=== PATIENT | female | born 1950 | race Caucasian/White ===

== ENCOUNTER 2017-12-16 06:53 | Inpatient (IN) ==
[2017-12-16] MEDS ORDERED: Morphine Inj 4 MG/ML Vial IV.PUSH ONE ×2 (07:22→12:39)
[2017-12-16] MEDS ORDERED: Sod Chloride 0.9% Inj 1,000 ML IV.SIG ONE (07:22)
[2017-12-16] MEDS ORDERED: Ketorolac Inj 30 MG/ML (IVP) Vial IV.PUSH ONE (07:22)
--- NOTE | 2017-12-16 07:30 | ED ---
HPI General Chief Complaint: Abdominal Pain Stated Complaint: Abd Pain/Evac Time Seen by Provider: 12/16/17 07:22 History of Present Illness HPI narrative: This is a 67-year-old female with history of hypertension, presents today with severe right-sided abdominal pain. Patient states she was sleeping and about 4 AM, she was woken by a sudden onset of sharp stabbing right -sided abdominal pain. She reports it radiates down towards her groin. She describes it as a 9-10 out of 10 pain. There is no relieving factors. Nothing makes it worse. She reports is constant. She also reports slight discomfort with urination. There is no reported fevers, chills. There is nausea with no vomiting. Patient has never had anything like this before. Related Data Home Medications Medication Instructions Recorded Confirmed amlodipine 10 mg PO DAILY 12/16/17 12/16/17 cholecalciferol (vitamin D3) 1,000 unit PO DAILY 12/16/17 12/16/17 [Vitamin D3] multivitamin 1 tab PO DAILY 12/16/17 12/16/17 Allergies Allergy/AdvReac Type Severity Reaction Status Date / Time amoxicillin [From Augmentin] Allergy Rash, Verified 12/16/17 07:05 Generalized clavulanic acid Allergy Rash, Verified 12/16/17 07:05 [From Augmentin] Generalized Review of Systems Except as stated in HPI: all other systems reviewed are negative Constitutional Denies chills and Denies fever(s) Eyes Reports system reviewed and no additional complaints, except as docu ENT Reports system reviewed and no additional complaints, except as docu Cardiovascular Denies chest pain and Denies diaphoresis Respiratory Denies chest congestion and Denies dyspnea Gastrointestinal Reports abdominal pain (Right sided with radiation to the suprapubic area.), Reports nausea and Denies vomiting Genitourinary Denies hematuria (Unknown), Denies urinary frequency and Reports dysuria (Mild) Musculoskeletal Denies back pain and Denies neck pain Integumentary/Breasts Denies lesions and Denies rash Neurologic Reports system reviewed and no additional complaints, except as docu [facility] Medical History Medical History Constipation (Acute) History of revision of total replacement of right hip joint (Acute) Hypercholesterolemia (Acute) Hypertension (Acute) Surgical History Surgical History History of cholecystectomy (Acute) Previous section (Acute) Social History Social History Substance History: No History of Abuse Smoking Status: Former smoker Tobacco Type: Cigarettes How Often Do You Have a Drink Containing Alcohol: Never Recent Travel in [facility] within the Last 8 Weeks: No Recent Out of Country Travel within the Last 8 Weeks: No Immunization History Tetanus Immunization: >5 Years Hx Influenza Vaccine This Season: No Exam Narrative Exam Narrative: GENERAL: Well-developed well-nourished female in obvious discomfort. SKIN: Focused skin assessment warm/dry. HEAD: Atraumatic. Normocephalic. EYES: No scleral icterus. No injection or drainage. ENT: No nasal bleeding or discharge. Mucous membranes pink and moist. NECK: Trachea midline. Supple. CARDIOVASCULAR: Regular rate and rhythm. No murmur appreciated. RESPIRATORY: No accessory muscle use. Clear to auscultation. Breath sounds equal bilaterally. GASTROINTESTINAL: Abdomen soft, nondistended. The patient reports the pain is a deep pain. There is no reproducible pain on palpation. No pulsatile masses appreciated. MUSCULOSKELETAL: No obvious deformities. No clubbing. No cyanosis. No edema. NEUROLOGICAL: Awake and alert. No obvious cranial nerve deficits. Motor grossly within normal limits. Normal speech. Course Initial Documented Vital Signs Temperature 97.9 F 12/16/17 06:55 Pulse Rate 90 12/16/17 06:55 Respiratory Rate 16 12/16/17 06:55 Blood Pressure 133/68 12/16/17 06:55 Pulse Oximetry 99 12/16/17 06:55 Last Documented Vital Signs Temperature 97.9 F 12/16/17 07:01 Pulse Rate 99 H 12/16/17 12:03 Respiratory Rate 20 12/16/17 12:03 Blood Pressure 151/67 H 12/16/17 12:03 Pulse Oximetry 97 12/16/17 12:03 Medical Decision Making [facility] Narrative Medical decision making narrative: This is a 67-year-old female history of hypertension, presents today with complaints of severe right-sided abdominal pain. Patient states it woke her up from her sleep. She describes it as a 9- 10 out of 10 on the pain scale. It was unrelenting. She has been medicated twice with IV pain medicines. CT scan of the abdomen with contrast shows a large left adnexal mass concerning for malignancy. There is also a right adrenal mass that given the left adnexal mass, there is also concerned that this could possibly be malignant rather than benign. The patient will be admitted for intractable abdominal pain. There is a call out to the [facility] for admission. Differential Diagnosis Differential Diagnosis: Renal calculus versus cholecystitis versus pancreatitis versus AAA Lab Data Result diagrams: 12/16/17 07:30 12/16/17 07:30 Lab Results 12/16/17 12/16/17 12/16/17 Range/Units 07:30 07:30 08:32 WBC 11.5 H (4.0-11.0) th/mm3 RBC 3.98 L (4.00-5.30) mil/mm3 Hgb 11.8 (11.6-15.3) gm/dL Hct 35.8 (35.0-46.0) % MCV 90.0 (80.0-100.0) fL MCH 29.7 (27.0-34.0) pg MCHC 33.0 (32.0-36.0) % RDW 13.3 (11.6-17.2) % Plt Count 224 (150-450) th/mm3 MPV 10.4 (7.0-11.0) fL Neut % (Auto) 81.8 H (16.0-70.0) % Lymph % (Auto) 11.7 (9.0-44.0) % [place] % (Auto) 5.5 (0.0-8.0) % Eos % (Auto) 0.4 (0.0-4.0) % Baso % (Auto) 0.6 (0.0-2.0) % Neut # (Auto) 9.4 H (1.8-7.7) th/mm3 Lymph # (Auto) 1.3 (1.0-4.8) th/mm3 [place] # (Auto) 0.6 (0.0-0.9) th/mm3 Eos # (Auto) 0.0 (0.0-0.4) th/mm3 Baso # (Auto) 0.1 (0.0-0.2) th/mm3 WBC Differential . Differential Comment Auto diff final Sodium 143 (136-145) meq/L Potassium 3.4 L (3.5-5.1) meq/L Chloride 108 H (98-107) meq/L Carbon Dioxide 25.6 (21.0-32.0) meq/L Anion Gap 9 (5-15) meq/L BUN 17 (7-18) mg/dL Creatinine 0.93 (0.50-1.00) mg/dL Estimated GFR 60 L (>89) mL/min Random Glucose 133 H (74-106) mg/dL Calcium 8.7 (8.5-10.1) mg/dL Total Bilirubin 0.4 (0.2-1.0) mg/dL AST 17 (15-37) U/L ALT 22 (10-53) U/L Alkaline Phosphatase 118 H (45-117) U/L Total Protein 7.3 (6.4-8.2) g/dL Albumin 3.9 (3.4-5.0) g/dL Lipase 85 (73-393) U/L Urine Color Yellow (Yellw/Straw) Urine Clarity Clear (Clear) Urine pH 7.0 (5.0-8.5) Ur Specific [place] 1.015 (1.002-1.035) Urine Protein Negative (Neg-Trace) mg/dL Urine Glucose (UA) Negative (Negative) mg/dL Urine Ketones Negative (Negative) mg/dL Urine Occult Blood Negative (Negative) Urine Nitrate Negative (Negative) Urine Bilirubin Negative (Negative) Urine Urobilinogen Less than 2 (Less than 2) mg/dL Ur Leukocyte Esterase Trace H (Negative) Urine RBC 1 (0-3) /hpf Urine WBC 2 (0-5) /hpf Ur Squamous Epith Cells 2 (0-5) /hpf Micro UA Comment Culture not ind Urine Culture Comments Culture not ind Imaging Data Radiologist's impression: Abdomen/Pelvis CT 12/16/17 09:34 CONCLUSION: 1. 16.7 x 13.4 x 16.9 cm cystic mass arising from the left adnexa concerning for malignancy. 2. 2.9 x 3.5 cm mass in the right adrenal gland this is fairly low density and may be benign however it is somewhat more concerning in light of the mass within the pelvis. MRI with chemical shift imaging for further assessment would be of benefit. Discharge Plan Discharge Disposition Patient Disposition: 30 Still Patient Discharge Details Diagnosis: Intractable right upper quadrant abdominal pain, Adnexal mass, Adrenal mass, right Physicians Team ED Provider: Juan David Roger Primary Care Provider: UNKNOWN, Rxs /Orders / Referrals /Forms Prescriptions: No Action multivitamin Tablet 1 tab PO DAILY RF: 0 amlodipine 10 mg Tablet 10 mg PO DAILY RF: 0 cholecalciferol (vitamin D3) [Vitamin D3] 1,000 unit Capsule 1,000 unit PO DAILY RF: 0 Discharge Interventions Interventions: Vital Signs Last Done: 12/16/17 12:03 Status ED Status: With Doctor
[2017-12-16 07:51] LABS: Baso # (Auto) 0.1 th/mm3 (0.0-0.2); Baso % (Auto) 0.6 % (0.0-2.0); Eos % (Auto) 0.4 % (0.0-4.0); Hematocrit 35.8 % (35.0-46.0); Hemoglobin 11.8 gm/dL (11.6-15.3); Lymph # (Auto) 1.3 th/mm3 (1.0-4.8); Lymph % (Auto) 11.7 % (9.0-44.0); Mean Corpuscular Hemoglobin 29.7 pg (27.0-34.0); Mean Platelet Volume 10.4 fL (7.0-11.0); Mono # (Auto) 0.6 th/mm3 (0.0-0.9); Mono % (Auto) 5.5 % (0.0-8.0); Neut # (Auto) 9.4 th/mm3 (1.8-7.7); Neut % (Auto) 81.8 % (16.0-70.0); Platelet Count 224 th/mm3 (150-450); Red Blood Count 3.98 mil/mm3 (4.00-5.30); Red Cell Distribution Width 13.3 % (11.6-17.2); White Blood Count 11.5 th/mm3 (4.0-11.0)
[2017-12-16] MEDS ORDERED: HYDROmorphone PF Inj 2 MG/ML Vial IV.PUSH ONE ×2 (07:52→09:42)
[2017-12-16 08:05] LABS: Alanine Aminotransferase 22 U/L (10-53); Albumin 3.9 g/dL (3.4-5.0); Anion Gap 9 meq/L (5-15); Aspartate Aminotransferase 17 U/L (15-37); Blood Urea Nitrogen 17 mg/dL (7-18); Calcium 8.7 mg/dL (8.5-10.1); Carbon Dioxide 25.6 meq/L (21.0-32.0); Chloride 108 meq/L (98-107); Glomerular Filtration Rate 60 mL/min (>89); Glucose,Random 133 mg/dL (74-106); Lipase 85 U/L (73-393); Potassium 3.4 meq/L (3.5-5.1); Sodium 143 meq/L (136-145)
[2017-12-16 08:08] LABS: Alkaline Phosphatase 118 U/L (45-117); Total Protein 7.3 g/dL (6.4-8.2)
[2017-12-16 08:58] LABS: Bilirubin,Urine Negative (Negative); Clarity,Urine Clear (Clear); Color,Urine Yellow (Yellw/Straw); Glucose,Urine (UA) Negative (Negative); Leukocyte Esterase,Urine Trace (Negative); Nitrite,Urine Negative (Negative); Specific Gravity,Urine 1.015 (1.002-1.035); Squamous Epithelial Cell,Urine 2 /hpf (0-5)
[2017-12-16] MEDS ORDERED: HYDROmorphone PF Inj 1 MG/ML Ampul IV.PUSH ONE (09:24)
[2017-12-16] MEDS ORDERED: Diatrizoate Meglum/Diatrizoate Sod Liq 9 ML UDC ONE (09:50)
[2017-12-16] MEDS ORDERED: Diatrizoate Meglum/Diatrizoate Sod Liq 9 ML UDC PO ONE (11:00)
--- NOTE | 2017-12-16 11:19 | CT ---
EXAM DATE: 12/16/2017 11:03 AM EDT AGE/SEX: 67 years / Female INDICATIONS: Right upper quadrant abdominal pain. CLINICAL DATA: This is the patient's initial encounter. Patient reports that signs and symptoms have been present for 1 day and indicates a pain score of 8/10. MEDICAL/SURGICAL HISTORY: Hypertension. Cholecystectomy. section. ORAL CONTRAST: Partial prescribed oral contrast ingested. RADIATION DOSE: 14.68 CTDI (mGy) COMPARISON: No prior exams available for comparison. TECHNIQUE: Multiple contiguous axial images were obtained through the abdomen and pelvis following b olus infusion of 93 ml Omnipaque 350 (iohexol) nonionic water-soluble contrast as a single exam dos e. Partial prescribed oral contrast ingested. Using automated exposure control and adjustment of the mA and/or kV according to patient size, radiation dose was kept as low as reasonably achievable to o btain optimal diagnostic quality images. DICOM format image data is available electronically for rev iew and comparison. FINDINGS: The examination demonstrates mild atelectatic changes within the lung bases. The appearance of the liver is within normal limits. There are punctate granulomatous calcifications within the spleen. The pancreas is intact. The examination does demonstrate a 2.9 x 3.5 cm mass within the right adrenal gland. This is fairly l ow density however it does measure approximately 50 Hounsfield units it probably represents adrenal a denoma however, the density measurements are indeterminate. Patient could either undergo MRI imaging or noncontrast CT imaging at some point for further workup. The kidneys are normal in appearance bilaterally. The abdominal aorta is normal in caliber. There is no retroperitoneal adenopathy. Imaging through the pelvis demonstrates a 16.7 x 13.4 x 16.9 cm well-circumscribed mass arising from the left adnexal region. This is felt to be ovarian origin. Primary differential considerations would include serous cyst adenoma versus serous cyst adenocarcinoma. Malignancy is not excluded. No adenop athy is seen within the pelvis. There is no free fluid within the pelvis. The visualized loops of sma ll and large bowel are unremarkable. The anterior abdominal wall is intact. There are degenerative changes within the lumbar spine. The patient is post right hip arthroplasty. N ote is made of a 1 cm bone island in the posterior right iliac wing. CONCLUSION: 1. 16.7 x 13.4 x 16.9 cm cystic mass arising from the left adnexa concerning for malignancy. 2. 2.9 x 3.5 cm mass in the right adrenal gland this is fairly low density and may be benign however it is somewhat more concerning in light of the mass within the pelvis. MRI with chemical shift imagi ng for further assessment would be of benefit. Electronically signed by: Adrien Torrez MD 12/16/2017 11:18 AM EDT
[2017-12-16] MEDS ORDERED: Temazepam 15 MG Capsule PO PRN (12:34)
[2017-12-16] MEDS ORDERED: Acetaminophen 325 MG Tablet PO PRN (12:34)
--- NOTE | 2017-12-16 13:03 | P.HPIM ---
History of Present Illness Primary Care Physician: UNKNOWN Chief Complaint: Pain History of Present Illness: The patient is a 67-year-old female with past medical history of hypertension and hyperlipidemia who is presenting to the hospital with severe abdominal pain. The patient states that at 4 AM she woke up to go to the bathroom when she started to experience severe sharp pains in her right lower quadrant. She says the pain continued to get worse and worse. It was radiating to her right lower back and also down the right side of her groin. She said she had accompanying nausea. She denied any dizziness or fever. She called her daughter at about 5 AM. The patient's is on hospice and the hospice nurse was there and called for an ambulance. The patient still rates her pain at 8 out of 10 in severity. 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 She said her periods stopped at the age of 51. She has not had any bleeding recently. She says that she has been experiencing low right-sided back pain for the past week. She has been taking Advil for that. She endorses hard stools and has been taking stool softeners. She does admit to noticing protrusions in her abdomen over the past 6 months. Inpatient Certification: I certify that the inpatient services were ordered in accordance with Medicare regulations governing the order. This includes certification that hospital inpatient services are reasonable and necessary and in the case of services not specified as inpatient-only under 42 CFR 419.22(n), that they are appropriately provided as inpatient services in accordance to with the 2-midnight benchmark under 43 CFR 412.3(e) Estimated Total Length of Stay (Days): 3 Plans for Post Hospital Care: Not yet determined Review of Systems All other systems reviewed negative except as stated in HPI PMFSH - History History Provided By: Patient, Parts And Service Manager / EMT - Medical History Medical History: Medical History (Last Updated 12/16/17 @ 07:00 by Jacqui De Jesus RN) Constipation History of revision of total replacement of right hip joint Hypercholesterolemia Hypertension - Surgical History Surgical History: Surgical History (Last Updated 12/16/17 @ 07:00 by Jacqui De Jesus RN) History of cholecystectomy Previous section - Family History Family History: Family History (Last Updated 12/16/17 @ 13:04 by Peng Sayess, DO) Other Renal cancer - Tobacco History Smoking Status: Former smoker Tobacco Type: Cigarettes - Alcohol History How Often Do You Have a Drink Containing Alcohol: Never - Substance Use History Substance History: No History of Abuse - Travel History Recent Travel in the [place] Within the Last 8 Weeks: No Recent Travel Out of the Country Within the Last 8 Weeks: No - Immunization History Tetanus Immunization: >5 Years Hx Influenza Vaccine This Season: No Medications and Allergies Active Medications: Active Medications Acetaminophen (Tylenol) 650 mg PO Q4H PRN PRN Reason: Temp > 100.4 Amlodipine Besylate (Norvasc) 10 mg PO DAILY ALFRED Hydromorphone HCl (Dilaudid Pf Inj) 1 mg IV.PUSH Q4H PRN PRN Reason: BREAKTHROUGH PAIN Sodium Chloride (Ns Inj) 1,000 mls @ 100 mls/hr IV.CONT .Q10H ALFRED Potassium Chloride (Kcl 20 Meq Premix Inj) 20 meq in 100 mls @ 50 mls/hr IV.SIG ONCE ONE Stop: 12/16/17 14:33 Metoclopramide HCl (Reglan Inj) 5 mg IV.PUSH Q6HR PRN; Protocol PRN Reason: NAUSEA OR VOMITING Oxycodone HCl (Roxicodone) 10 mg PO Q4H PRN PRN Reason: pain 7-10 Oxycodone HCl (Roxicodone) 5 mg PO Q4H PRN PRN Reason: pain 3-6 Senna/Docusate Sodium (Juju-Colace) 1 tab PO BID ALFRED Sodium Chloride (Ns Flush) 2 ml IV.FLUSH PRN PRN PRN Reason: FLUSH AFTER USING IV ACCESS Last Admin: 12/16/17 12:45 Dose: 2 ml Temazepam (Restoril) 15 mg PO HS PRN PRN Reason: INSOMNIA Allergies Allergy/AdvReac Type Severity Reaction Status Date / Time amoxicillin [From Augmentin] Allergy Rash, Verified 12/16/17 07:05 Generalized clavulanic acid Allergy Rash, Verified 12/16/17 07:05 [From Augmentin] Generalized Home Medications Medication Instructions Recorded Confirmed Type amlodipine 10 mg PO DAILY 12/16/17 12/16/17 History cholecalciferol (vitamin D3) 1,000 unit PO DAILY 12/16/17 12/16/17 History [Vitamin D3] multivitamin 1 tab PO DAILY 12/16/17 12/16/17 History Exam Vital signs: Vital Signs 12/16/17 06:55 12/16/17 07:01 12/16/17 07:24 Temperature 97.9 F 97.9 F Pulse Rate 90 96 H Respiratory Rate 16 16 Blood Pressure 133/68 133/68 Pulse Oximetry 99 99 99 12/16/17 08:05 12/16/17 08:08 12/16/17 09:00 Temperature Pulse Rate 93 H 93 H Respiratory Rate 16 14 Blood Pressure 135/71 124/60 Pulse Oximetry 93 L 96 97 12/16/17 12:03 Temperature Pulse Rate 99 H Respiratory Rate 20 Blood Pressure 151/67 H Pulse Oximetry 97 Intake & Output 12/15/17 12/16/17 12/16/17 18:59 06:59 18:59 Intake Total 1000 / 1000 Balance 1000 / 1000 Weight 102.058 kg Intake: IV 1000 / 1000 NS Inj 1,000 ML @ Wide Open IV. 1000 / 1000 SIG BOLUS ONE Rx#:[id number] Other: # Voids 2 Date of Last Bowel Movement 12/15/17 Narrative: GENERAL: Well-developed well-nourished female in discomfort. SKIN: Focused skin assessment warm/dry. HEAD: Atraumatic. Normocephalic. EYES: No scleral icterus. No injection or drainage. ENT: No nasal bleeding or discharge. Mucous membranes pink and moist. NECK: Trachea midline. Supple. CARDIOVASCULAR: Regular rate and rhythm. No murmur appreciated. RESPIRATORY: No accessory muscle use. Clear to auscultation. Breath sounds equal bilaterally. GASTROINTESTINAL: Abdomen soft, tender in the upper quadrants. Somewhat distended. MUSCULOSKELETAL: No obvious deformities. No clubbing. No cyanosis. No edema. NEUROLOGICAL: Awake and alert. No obvious cranial nerve deficits. Motor grossly within normal limits. Normal speech. Results - Labs CBC & Chem 7: 12/16/17 07:30 12/16/17 07:30 Labs: Short CBC 12/16/17 Range/Units 07:30 WBC 11.5 H (4.0-11.0) th/mm3 Hgb 11.8 (11.6-15.3) gm/dL Hct 35.8 (35.0-46.0) % Plt Count 224 (150-450) th/mm3 BMP 12/16/17 07:30 Sodium 143 Potassium 3.4 L Chloride 108 H Carbon Dioxide 25.6 BUN 17 Creatinine 0.93 Calcium 8.7 Liver Function 12/16/17 Range/Units 07:30 Total Bilirubin 0.4 (0.2-1.0) mg/dL AST 17 (15-37) U/L ALT 22 (10-53) U/L Alkaline Phosphatase 118 H (45-117) U/L Albumin 3.9 (3.4-5.0) g/dL Urine 12/16/17 Range/Units 08:32 Urine Color Yellow (Yellw/Straw) Urine Clarity Clear (Clear) Urine pH 7.0 (5.0-8.5) Ur Specific [place] 1.015 (1.002-1.035) Urine Protein Negative (Neg-Trace) mg/dL Urine Glucose (UA) Negative (Negative) mg/dL - Imaging Impressions Abdomen/Pelvis CT 12/16/17 09:34 CONCLUSION: 1. 16.7 x 13.4 x 16.9 cm cystic mass arising from the left adnexa concerning for malignancy. 2. 2.9 x 3.5 cm mass in the right adrenal gland this is fairly low density and may be benign however it is somewhat more concerning in light of the mass within the pelvis. MRI with chemical shift imaging for further assessment would be of benefit. Caprini VTE Risk Assessment Caprini VTE Risk Assessment: Moderate/High Risk (score >= 2) Caprini Risk Assessment Model: Point Value = 1 Point Value = 2 Point Value = 3 Point Value = 5 Age 41-60 Minor surgery BMI > 25 kg/m2 Swollen legs Varicose veins or History of unexplained or recurrent spontaneous Oral contraceptives or hormone replacement Sepsis (< 1 month) Serious lung disease, including pneumonia (< 1 month) Abnormal pulmonary function Acute myocardial infarction Congestive heart failure (< 1 month) History of inflammatory bowel disease Medical patient at bed rest Age 61-74 Arthroscopic surgery Major open surgery (> 45 min) Laparoscopic surgery (> 45 min) Malignancy Confined to bed (> 72 hours) Immobilizing plaster cast Central venous access Age >= 75 History of VTE Family history of VTE Factor V Leiden Prothrombin [id number] Lupus anticoagulant Anticardiolipin antibodies Elevated serum homocysteine Heparin-induced thrombocytopenia Other congenital or acquired thrombophilia Stroke (< 1 month) Elective arthroplasty Hip, pelvis, or leg fracture Acute spinal cord injury (< 1 month) Prophylaxis Regimen: Total Risk Factor Score Risk Level Prophylaxis Regimen 0-1 Low Early ambulation 2 Moderate Order ONE of the following: *Sequential Compression Device (SCD) *Heparin 5000 units SQ BID 3-4 Higher Order ONE of the following medications: *Heparin 5000 units SQ TID *Enoxaparin/Lovenox 40 mg SQ daily (WT < 150 kg, CrCl > 30 mL/min) *Enoxaparin/Lovenox 30 mg SQ daily (WT < 150 kg, CrCl > 10-29 mL/min) *Enoxaparin/Lovenox 30 mg SQ BID (WT < 150 kg, CrCl > 30 mL/min) AND/OR *Sequential Compression Device (SCD) 5 or more Highest Order ONE of the following medications: *Heparin 5000 units SQ TID (Preferred with Epidurals) *Enoxaparin/Lovenox 40 mg SQ daily (WT < 150 kg, CrCl > 30 mL/min) *Enoxaparin/Lovenox 30 mg SQ daily (WT < 150 kg, CrCl > 10-29 mL/min) *Enoxaparin/Lovenox 30 mg SQ BID (WT < 150 kg, CrCl > 30 mL/min) AND *Sequential Compression Device (SCD) Assessment and Plan - Plan Adnexal mass The pt presented with severe abdominal pain. CT showed: 16.7 x 13.4 x 16.9 cm cystic mass arising from the left adnexa concerning for malignancy; 2.9 x 3.5 cm mass in the right adrenal gland this is fairly low density and may be benign however it is somewhat more concerning in light of the mass within the pelvis; MRI with chemical shift imaging for further assessment would be of benefit. -pain control with a bowel regimen. -antiemetics as needed. -OBGYN consult pending. -keep the pt NPO with IVFs. HTN Exacerbated by pain. -resume home amlodipine. -pain control. -clonidine if needed. Hypokalemia Likely s/t decreased PO intake. -replete with IV KCl and monitor. Leukocytosis/ Hyperglycemia Likely a stress reaction. -continue to monitor. PPx: SCDs Code Status: Full
[2017-12-16] MEDS ORDERED: Potassium Chlor 20 mEq Premix 20 MEQ/100 ML PIGGYBACK IV.SIG ONE (15:00)
[2017-12-16] MEDS: HYDROmorphone PF Inj 2 MG/ML Vial IV.PUSH PRN ×2 (16:11→20:27)
[2017-12-16] MEDS: amLODIPine 10 MG Tablet PO SCH (16:48)
[2017-12-16] MEDS: Sod Chloride 0.9% Inj 1,000 ML IV.CONT SCH (16:48)
[2017-12-16] MEDS: Senna/Docusate Sodium 8.6/50 MG Tablet PO SCH (20:29)
[2017-12-17] MEDS: HYDROmorphone PF Inj 2 MG/ML Vial IV.PUSH PRN ×2 (02:39→09:31)
[2017-12-17] MEDS: Sod Chloride 0.9% Inj 1,000 ML IV.CONT SCH ×3 (02:41→22:28)
[2017-12-17 06:06] LABS: Baso % (Auto) 0.3 % (0.0-2.0); Eos % (Auto) 0.2 % (0.0-4.0); Hematocrit 29.8 % (35.0-46.0); Mean Corpuscular HGB Conc 33.6 % (32.0-36.0); Mean Corpuscular Hemoglobin 30.6 pg (27.0-34.0); Mean Corpuscular Volume 91.1 fL (80.0-100.0); Mean Platelet Volume 10.1 fL (7.0-11.0); Mono # (Auto) 0.9 th/mm3 (0.0-0.9); Mono % (Auto) 9.7 % (0.0-8.0); Neut # (Auto) 7.1 th/mm3 (1.8-7.7); Neut % (Auto) 78.8 % (16.0-70.0); Platelet Count 195 th/mm3 (150-450); Red Blood Count 3.27 mil/mm3 (4.00-5.30); Red Cell Distribution Width 13.4 % (11.6-17.2)
[2017-12-17 06:30] LABS: Alanine Aminotransferase 216 U/L (10-53); Albumin 3.3 g/dL (3.4-5.0); Alkaline Phosphatase 159 U/L (45-117); Anion Gap 7 meq/L (5-15); Aspartate Aminotransferase 342 U/L (15-37); Blood Urea Nitrogen 14 mg/dL (7-18); Calcium 8.7 mg/dL (8.5-10.1); Carbon Dioxide 27.9 meq/L (21.0-32.0); Chloride 106 meq/L (98-107); Glomerular Filtration Rate 64 mL/min (>89); Glucose,Random 103 mg/dL (74-106); Potassium 3.9 meq/L (3.5-5.1); Sodium 141 meq/L (136-145); Total Protein 6.7 g/dL (6.4-8.2)
[2017-12-17] MEDS: Senna/Docusate Sodium 8.6/50 MG Tablet PO SCH ×2 (09:30→22:28)
[2017-12-17] MEDS: amLODIPine 10 MG Tablet PO SCH (09:30)
--- NOTE | 2017-12-17 13:26 | P.CONOB ---
History of Present Illness - Data of Consult Consult date: 12/17/17 Requesting Physician: Peng Mancia DO Primary Care Provider: MACEY Sharpe Family Provider: Amada Dorantes - Consult Narrative Reason for consult: pelvic pain (Large pelvic mass noted on CT scan on admission ), pelvic mass Narrative: Blanquita Webber is a 67 year old female Review of Systems Constitutional: Denies anorexia, Denies body ache(s), Denies chills, Denies daytime sleepiness, Denies excessive sweating, Denies fatigue, Denies fever(s), Denies headache(s), Denies increased appetite, Denies lack of energy, Denies malaise, Denies night sweats, Denies weakness, Denies weight gain, Denies weight loss, Denies other Cardiovascular: Denies chest pain, Denies chest pain at rest, Denies chest pain with activity, Denies excessive sweating, Denies fainting, Denies fast heart rate, Denies foot swelling, Denies generalized swelling, Denies irregular heart rhythm, Denies leg pain with activity, Denies leg sores, Denies leg swelling, Denies lightheadedness, Denies radiating jaw, neck or arm pain, Denies rapid, pounding, or irregular heartbeat, Denies shortness of breath, Denies shortness of breath with activity, Denies shortness of breath when lying down, Denies shortness of breath causing sudden awakening, Denies slow heart rate, Denies other Respiratory: Denies change in phlegm color, Denies chest congestion, Denies cough, Denies coughing up blood, Denies excessive phlegm production, Denies pain on inspiration, Denies pain with cough, Denies shortness of breath, Denies shortness of breath with activity, Denies snoring, Denies stridor, Denies wheezing, Denies other Gastrointestinal: Reports abdominal pain Neurologic: Denies abnormal hearing, Denies abnormal movements, Denies abnormal speech, Denies abnormal walking, Denies behavioral changes, Denies burning sensations, Denies confusion, Denies dizziness, Denies fainting, Denies frequent falls, Denies headache(s), Denies lack of coordination, Denies localized weakness, Denies loss of vision, Denies memory loss, Denies numbness, Denies other visual disturbances, Denies radiating pain, Denies restless legs, Denies convulsions, Denies seizure-like activity, Denies sensory deficit, Denies tingling, Denies tingling/numbness/burning sensations, Denies tremor(s), Denies unsteadiness, Denies weakness, Denies other PMFSH - History History Provided By: Patient, Platform Power Technician / EMT - Medical History Medical History: Medical History (Last Updated 12/16/17 @ 07:00 by Jacqui De Jesus RN) Constipation History of revision of total replacement of right hip joint Hypercholesterolemia Hypertension - Surgical History Surgical History: Surgical History (Last Updated 12/16/17 @ 07:00 by Jacqui De Jesus RN) History of cholecystectomy Previous section - Family History Family History: Family History (Last Updated 12/16/17 @ 13:04 by Peng Mancia DO) Other Renal cancer - Tobacco History Smoking Status: Former smoker Tobacco Type: Cigarettes - Alcohol History How Often Do You Have a Drink Containing Alcohol: Never - Substance Use History Substance History: No History of Abuse - Travel History Recent Travel in the [place] Within the Last 8 Weeks: No Recent Travel Out of the Country Within the Last 8 Weeks: No - Immunization History Tetanus Immunization: >5 Years Hx Influenza Vaccine This Season: No Medications and Allergies Active Medications: Active Medications Acetaminophen (Tylenol) 650 mg PO Q4H PRN PRN Reason: Temp > 100.4 Amlodipine Besylate (Norvasc) 10 mg PO DAILY [facility] Last Admin: 12/17/17 09:30 Dose: 10 mg Hydromorphone HCl (Dilaudid Pf Inj) 1 mg IV.PUSH Q4H PRN PRN Reason: BREAKTHROUGH PAIN Last Admin: 12/17/17 09:31 Dose: 1 mg Sodium Chloride (Ns Inj) 1,000 mls @ 100 mls/hr IV.CONT .Q10H [facility] Last Admin: 12/17/17 13:07 Dose: 100 mls/hr Metoclopramide HCl (Reglan Inj) 5 mg IV.PUSH Q6H PRN; Protocol PRN Reason: NAUSEA OR VOMITING Last Admin: 12/17/17 09:30 Dose: 5 mg Oxycodone HCl (Roxicodone) 10 mg PO Q4H PRN PRN Reason: pain 7-10 Last Admin: 12/17/17 13:06 Dose: 10 mg Oxycodone HCl (Roxicodone) 5 mg PO Q4H PRN PRN Reason: pain 3-6 Senna/Docusate Sodium (Juju-Colace) 1 tab PO BID [facility] Last Admin: 12/17/17 09:30 Dose: 1 tab Sodium Chloride (Ns Flush) 2 ml IV.FLUSH PRN PRN PRN Reason: FLUSH AFTER USING IV ACCESS Last Admin: 12/16/17 12:45 Dose: 2 ml Temazepam (Restoril) 15 mg PO HS PRN PRN Reason: INSOMNIA Allergies Allergy/AdvReac Type Severity Reaction Status Date / Time amoxicillin [From Augmentin] Allergy Rash, Verified 12/16/17 07:05 Generalized clavulanic acid Allergy Rash, Verified 12/16/17 07:05 [From Augmentin] Generalized Home Medications Medication Instructions Recorded Confirmed Type amlodipine 10 mg PO DAILY 12/16/17 12/16/17 History cholecalciferol (vitamin D3) 1,000 unit PO DAILY 12/16/17 12/16/17 History [Vitamin D3] multivitamin 1 tab PO DAILY 12/16/17 12/16/17 History Physical Exam Vital signs: Temp Pulse Resp BP Pulse Ox 98.9 F 81 18 114/55 L 97 12/17/17 12:00 12/17/17 12:00 12/17/17 12:00 12/17/17 12:00 12/17/17 12:00 - Constitutional no acute distress - Routine Respiratory Exam Present: CTA bilaterally - Routine Abdominal Exam Present: soft, mass Comments: Abdominal exam reveals slightly distended abdomen with normal bowel sounds by percussion and palpation there is a mass to near the umbilicus that appears to be across the whole pelvis right to left, this mass is 1-2+ tender - Detailed Neurological Exam: Coma Scale Eye Opening: Spontaneous Verbal Response: Oriented Motor Response: Obey commands [place] Coma Scale Total: 15 Results - Labs CBC & Chem 7: 12/17/17 04:16 12/17/17 04:16 Labs: Short CBC 12/17/17 Range/Units 04:16 WBC 9.0 (4.0-11.0) th/mm3 Hgb 10.0 L (11.6-15.3) gm/dL Hct 29.8 L (35.0-46.0) % Plt Count 195 (150-450) th/mm3 BMP 12/17/17 04:16 Sodium 141 Potassium 3.9 Chloride 106 Carbon Dioxide 27.9 BUN 14 Creatinine 0.88 Calcium 8.7 Liver Function 12/17/17 Range/Units 04:16 Total Bilirubin 1.0 (0.2-1.0) mg/dL AST 342 H (15-37) U/L ALT 216 H (10-53) U/L Alkaline Phosphatase 159 H (45-117) U/L Albumin 3.3 L D (3.4-5.0) g/dL - Imaging CT scan shows large pelvic mass arising from what appears to the left adnexa with a 17 x 16 x 14 cm Assessment and Plan - Assessment (1) Pelvic mass in female Code(s): R19.00 - Intra-abdominal and pelvic swelling, mass and lump, unspecified site Status: Acute (2) Abdominal pain in female Code(s): R10.9 - Unspecified abdominal pain Status: Acute - Plan Plan to check a CA 125 on this patient and if markedly elevated and patient needs SOUND RECORDING TECHNICIAN oncology evaluation and surgical therapy, if the CA-125 is within normal limits and I consider gynecologic staff referral for surgical therapy
--- NOTE | 2017-12-17 13:52 | P.PNIM ---
Subjective Interval history: The patient said that her pain was better controlled. She still has right sided abdominal and back pain. Her family was at the bedside and their questions were answered. The patient did not have much of an appetite. Discussed with EXERCISE SPECIALIST. Physical Exam Vital signs: Vital Signs 12/16/17 16:00 12/16/17 18:07 12/16/17 18:18 Temperature 98.3 F Pulse Rate 95 H Respiratory Rate 18 18 Blood Pressure 133/60 Pulse Oximetry 98 98 12/16/17 20:00 12/17/17 00:00 12/17/17 08:00 Temperature 98.3 F 98 F 98.3 F Pulse Rate 86 80 86 Respiratory Rate 17 17 18 Blood Pressure 116/59 L 112/60 138/66 Pulse Oximetry 93 L 94 L 96 12/17/17 12:00 Temperature 98.9 F Pulse Rate 81 Respiratory Rate 18 Blood Pressure 114/55 L Pulse Oximetry 97 Intake & Output 12/16/17 12/17/17 12/17/17 18:59 06:59 18:59 Intake Total 1000 / 1000 1100 / 1100 1000 / 1000 Balance 1000 / 1000 1100 / 1100 1000 / 1000 Intake: IV 1000 / 1000 1100 / 1100 1000 / 1000 NS Inj 1,000 ML @ 100 mls/hr IV 1000 / 1000 1000 / 1000 .CONT .Q10H [facility] Rx#:[id number] KCl 20 mEq Premix Inj 20 meq In 100 / 100 100 ml @ 50 mls/hr IV.SIG ONCE ONE Rx#:[id number] NS Inj 1,000 ML @ Wide Open IV. 1000 / 1000 SIG BOLUS ONE Rx#:[id number] Oral 0 / 0 Other: # Voids 3 2 Date of Last Bowel Movement 12/15/17 Narrative: GENERAL: Well-developed well-nourished female in discomfort. SKIN: Focused skin assessment warm/dry. HEAD: Atraumatic. Normocephalic. EYES: No scleral icterus. No injection or drainage. ENT: No nasal bleeding or discharge. Mucous membranes pink and moist. NECK: Trachea midline. Supple. CARDIOVASCULAR: Regular rate and rhythm. No murmur appreciated. RESPIRATORY: No accessory muscle use. Clear to auscultation. Breath sounds equal bilaterally. GASTROINTESTINAL: Abdomen soft, tender in the upper quadrants. Somewhat distended. MUSCULOSKELETAL: No obvious deformities. No clubbing. No cyanosis. No edema. NEUROLOGICAL: Awake and alert. No obvious cranial nerve deficits. Motor grossly within normal limits. Normal speech. Results - Labs CBC & Chem 7: 12/17/17 04:16 12/17/17 04:16 Laboratory Results - last 24 hr 12/17/17 12/17/17 04:16 04:16 WBC 9.0 RBC 3.27 L Hgb 10.0 L Hct 29.8 L MCV 91.1 MCH 30.6 MCHC 33.6 RDW 13.4 Plt Count 195 MPV 10.1 Neut % (Auto) 78.8 H Lymph % (Auto) 11.0 Atkinson % (Auto) 9.7 H Eos % (Auto) 0.2 Baso % (Auto) 0.3 Neut # (Auto) 7.1 Lymph # (Auto) 1.0 Atkinson # (Auto) 0.9 Eos # (Auto) 0.0 Baso # (Auto) 0.0 WBC Differential . Differential Comment Auto diff final Sodium 141 Potassium 3.9 Chloride 106 Carbon Dioxide 27.9 Anion Gap 7 BUN 14 Creatinine 0.88 Estimated GFR 64 L Random Glucose 103 Calcium 8.7 Total Bilirubin 1.0 AST 342 H ALT 216 H Alkaline Phosphatase 159 H Total Protein 6.7 D Albumin 3.3 L D Assessment and Plan - Plan Adnexal mass The pt presented with severe abdominal pain. CT showed: 16.7 x 13.4 x 16.9 cm cystic mass arising from the left adnexa concerning for malignancy; 2.9 x 3.5 cm mass in the right adrenal gland this is fairly low density and may be benign however it is somewhat more concerning in light of the mass within the pelvis; MRI with chemical shift imaging for further assessment would be of benefit. -pain control with a bowel regimen. -antiemetics as needed. -OBGYN consult appreciated. CA-125 pending. HTN Well controlled. -resume home amlodipine. -pain control. -clonidine if needed. Hypokalemia Likely s/t decreased PO intake. -replete with IV KCl and monitor. Leukocytosis/ Hyperglycemia Likely a stress reaction. -resolved. PPx: SCDs Discharge Planning: Awaiting further input from OBGYN.
--- NOTE | 2017-12-17 15:51 | US ---
EXAM DATE: 12/17/2017 3:41 PM EDT AGE/SEX: 67 years / Female INDICATIONS: Mass seen on CT. CLINICAL DATA: This is the patient's initial encounter. Patient reports that signs and symptoms have been present for 2 days and indicates a pain score of 0/10. MEDICAL/SURGICAL HISTORY: Hypertension. Hypercholesterolemia. section. Cholecystecto my. Right hip replacement. COMPARISON: No prior exams available for comparison. MEASUREMENTS: Uterus:__10.9 x 7.7 x 3.4 cm Endometrial Stripe:__N/A Right Ovary:__ . Not visualized. Left Ovary:__ . Not visualized. FINDINGS: Uterus: The myometrium has homogeneous echotexture without mass. Endometrial Stripe: Poorly visualized. Right Ovary: Not visualized. Left Ovary: Not visualized. Fluid: No free fluid. Other: There is a large complex cystic mass in the pelvis with multiple septations. A posterior debr is level and peripheral solid nodularity. The mass measures approximately 16.4 x 15.5 x 16.6 cm. CONCLUSION: 1. Large complex cystic mass in the pelvis as seen on recent CT examination. No free fluid identifie d. 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 2. Uterus and ovaries are not well characterized. Electronically signed by: Abran Tavarez MD 12/17/2017 3:50 PM EDT
[2017-12-18] MEDS: Sod Chloride 0.9% Inj 1,000 ML IV.CONT SCH ×2 (06:42→21:52)
[2017-12-18] MEDS: amLODIPine 10 MG Tablet PO SCH (09:17)
[2017-12-18] MEDS: Senna/Docusate Sodium 8.6/50 MG Tablet PO SCH ×2 (09:18→21:51)
--- NOTE | 2017-12-18 12:39 | P.HPOB ---
History of Present Illness Reason for admission: pelvic mass Narrative: Blanquita Webber is a 67 year old female 67 yo mwf P3 with intact pelvis on no HRT came to [facility] ED morning by [facility] with acute abdominal pain. Woke her at 4 am and 9/10. No N, V, fever. Bowels and bladder not affected. Had noticed some back pain the prior week. Has noted some increase in girth over several months. Appetite not affected. CT and sonogram show large pelvic mass likely the right ovary or arising from the right ovary. Complex in nature without ascites or obvious miliary implants. Uterus unremarkable. Has been on floor with observation 48 hours while work up with Dr. Sharpe performed. Consult to Dr. Magana who requested general senior technical specialist evaluate first. I was notifed at 12:00 today while in house. Pt is sitting up in bed and has had some mashed potatoes but otherwise minimal intake. Denies nausea or vomiting. Pain is low level if she is still but it is painful to get up and move around. Ca 125 is low. LFTs elevated markedly in first 24 hours of hospitalization. Has not seen a senior technical specialist in 30 years. No history of abnormal pap. No history of fibroids, endometriosis. Had 3 sections through a midline incision. Has had GB out in 1998. Has had hip replacement. Review of Systems All other systems reviewed negative except as stated in HPI Gastrointestinal: Reports abdominal pain, Reports bloating PMFSH - History History Provided By: Patient, Family Member - Medical History Medical History: Medical History (Last Updated 12/16/17 @ 07:00 by Jacqui De Jesus RN) Constipation History of revision of total replacement of right hip joint Hypercholesterolemia Hypertension - Surgical History Surgical History: Surgical History (Last Updated 12/16/17 @ 07:00 by Jacqui De Jesus RN) History of cholecystectomy Previous section - Family History Family History: Family History (Last Updated 12/16/17 @ 13:04 by Peng Mancia DO) Other Renal cancer - Tobacco History Second Hand Smoke Exposure: No Smoking Status: Never smoker Tobacco Type: Cigarettes - Alcohol History How Often Do You Have a Drink Containing Alcohol: Never - Substance Use History Substance History: No History of Abuse - Travel History Recent Travel in the [place] Within the Last 8 Weeks: No Recent Travel Out of the Country Within the Last 8 Weeks: No - Immunization History Tetanus Immunization: >5 Years Hx Influenza Vaccine This Season: No Medications and Allergies Active Medications: Active Medications Acetaminophen (Tylenol) 650 mg PO Q4H PRN PRN Reason: Temp > 100.4 Amlodipine Besylate (Norvasc) 10 mg PO DAILY [facility] Last Admin: 12/18/17 09:17 Dose: 10 mg Hydromorphone HCl (Dilaudid Pf Inj) 1 mg IV.PUSH Q4H PRN PRN Reason: BREAKTHROUGH PAIN Last Admin: 12/17/17 09:31 Dose: 1 mg Sodium Chloride (Ns Inj) 1,000 mls @ 100 mls/hr IV.CONT .Q10H [facility] Last Admin: 12/18/17 06:42 Dose: 100 mls/hr Metoclopramide HCl (Reglan Inj) 5 mg IV.PUSH Q6H PRN; Protocol PRN Reason: NAUSEA OR VOMITING Last Admin: 12/17/17 09:30 Dose: 5 mg Oxycodone HCl (Roxicodone) 10 mg PO Q4H PRN PRN Reason: pain 7-10 Last Admin: 12/18/17 10:36 Dose: 10 mg Oxycodone HCl (Roxicodone) 5 mg PO Q4H PRN PRN Reason: pain 3-6 Senna/Docusate Sodium (Juju-Colace) 1 tab PO BID [facility] Last Admin: 12/18/17 09:18 Dose: 1 tab Sodium Chloride (Ns Flush) 2 ml IV.FLUSH PRN PRN PRN Reason: FLUSH AFTER USING IV ACCESS Last Admin: 12/16/17 12:45 Dose: 2 ml Temazepam (Restoril) 15 mg PO HS PRN PRN Reason: INSOMNIA Allergies Allergy/AdvReac Type Severity Reaction Status Date / Time amoxicillin [From Augmentin] Allergy Rash, Verified 12/16/17 07:05 Generalized clavulanic acid Allergy Rash, Verified 12/16/17 07:05 [From Augmentin] Generalized Home Medications Medication Instructions Recorded Confirmed Type amlodipine 10 mg PO DAILY 12/16/17 12/16/17 History cholecalciferol (vitamin D3) 1,000 unit PO DAILY 12/16/17 12/16/17 History [Vitamin D3] multivitamin 1 tab PO DAILY 12/16/17 12/16/17 History Physical Exam Vital signs: Temp Pulse Resp BP Pulse Ox 98.7 F 94 H 17 125/59 L 94 L 12/18/17 08:00 12/18/17 08:00 12/18/17 08:00 12/18/17 08:00 12/18/17 08:00 - Constitutional mild distress - Routine Respiratory Exam Present: CTA bilaterally - Routine Cardiovascular Exam Present: RRR - Routine Abdominal Exam Present: soft, normoactive bowel sounds, tenderness, mass, surgical scars Comments: cyst palpable abdominally in right mid and upper quadrant. Results - Labs CBC & Chem 7: 12/17/17 04:16 12/17/17 04:16 - Imaging Impressions Pelvis Ultrasound 12/17/17 13:31 CONCLUSION: 1. Large complex cystic mass in the pelvis as seen on recent CT examination. No free fluid identified. 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 2. Uterus and ovaries are not well characterized. Assessment and Plan - Assessment (1) Adrenal mass, right Code(s): E27.9 - Disorder of adrenal gland, unspecified Status: Acute (2) Pelvic mass in female Code(s): R19.00 - Intra-abdominal and pelvic swelling, mass and lump, unspecified site Status: Acute - Plan Counseled in depth on need for exploration and possibility of benign vs ovarian malignancy. Less likely is torsion of adenxae. Other site is unlikely given imaging. Ca 125 is normal and no ascites. Elevated LFTS confusing. Will repeat today. OR called to see if available at 7:00 on Wednesday. Would have [place] inspector balance wheel motion if needed. TAHBSO with surgical staging. NPO night before antibiotic prophylaxis reviewed risks, benefits, expectations and post op recovery with patient and two daughters. H&P: Quality - VTE Deep Vein Thrombosis/Pulmonary Embolism Present on Admission: No
[2017-12-18 13:24] LABS: Baso % (Auto) 0.2 % (0.0-2.0); Hematocrit 29.7 % (35.0-46.0); Hemoglobin 9.9 gm/dL (11.6-15.3); Lymph # (Auto) 1.1 th/mm3 (1.0-4.8); Lymph % (Auto) 8.2 % (9.0-44.0); Mean Corpuscular HGB Conc 33.4 % (32.0-36.0); Mean Corpuscular Hemoglobin 30.8 pg (27.0-34.0); Mean Corpuscular Volume 92.1 fL (80.0-100.0); Mean Platelet Volume 9.7 fL (7.0-11.0); Mono # (Auto) 1.3 th/mm3 (0.0-0.9); Mono % (Auto) 9.9 % (0.0-8.0); Neut # (Auto) 10.6 th/mm3 (1.8-7.7); Neut % (Auto) 81.7 % (16.0-70.0); Platelet Count 182 th/mm3 (150-450); Red Blood Count 3.22 mil/mm3 (4.00-5.30); Red Cell Distribution Width 13.1 % (11.6-17.2)
--- NOTE | 2017-12-18 13:28 | P.PN ---
Subjective Interval history: Pt seen and examined for evaluation of R adnexal mass. Family is at the bedside. Patient reports she is comfortable with current pain management but still continues to have RLQ and RUQ pain. She endorses early satiety but otherwise no nausea, vomiting, or diarrhea. Regarding her elevated LFTs, she states she periodically takes Tylenol but no more than twice in a day for two days max. Last use was about a week ago. She denies aspirin use. Denies history of liver disease. No CP or SOB. Physical Exam Vital signs: Vital Signs 12/17/17 16:00 12/17/17 20:00 12/18/17 00:00 Temperature 98.9 F 98.3 F 100.5 F H Pulse Rate 86 86 88 Respiratory Rate 18 17 17 Blood Pressure 115/57 L 121/55 L 123/60 Pulse Oximetry 96 97 95 12/18/17 01:00 12/18/17 08:00 12/18/17 12:00 Temperature 98.2 F 98.7 F 98.6 F Pulse Rate 94 H 79 Respiratory Rate 17 17 Blood Pressure 125/59 L 113/62 Pulse Oximetry 94 L 92 L Intake & Output 12/17/17 12/18/17 12/18/17 18:59 06:59 18:59 Intake Total 1000 / 1000 2480 / 2480 Balance 1000 / 1000 2480 / 2480 Intake: IV 1000 / 1000 1999 NS Inj 1,000 ML @ 100 mls/hr IV 1000 / 1000 1999 .CONT .Q10H [facility] Rx#:[id number] Oral 480 / 480 Other: # Voids 6 2 Date of Last Bowel Movement 12/15/17 Narrative: GENERAL: WN, WD pleasant female resting in bed in [facility]. SKIN: Warm and dry. No jaundice. HEENT: AT/NC. Pupils equal and round. No scleral icterus. MMM. HEART: RRR no m/r/g. LUNGS: CTAB without wheezes or crackles. ABDOMEN: +BS, firm around RLQ but otherwise soft. TTP over RLQ and RUQ. EXTREMITIES: No LE edema. 2+ pedal pulses. NEURO: Awake and alert. Nonfocal. PSYCH: Appropriate mood and affect. Results - Labs CBC & Chem 7: 12/18/17 13:00 12/17/17 04:16 Laboratory Results - last 24 hr 12/17/17 13:54 CA 125 Antigen 17.6 - Imaging Impressions Pelvis Ultrasound 12/17/17 13:31 CONCLUSION: 1. Large complex cystic mass in the pelvis as seen on recent CT examination. No free fluid identified. 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 2. Uterus and ovaries are not well characterized. Assessment and Plan - Assessment (1) Transaminitis Code(s): R74.0 - Nonspecific elevation of levels of transaminase and lactic acid dehydrogenase [LDH] Status: Acute (2) Adnexal mass Code(s): N94.9 - Unspecified condition associated with female genital organs and menstrual cycle Status: Acute - Plan 67 year old female with history of HTN and HLD admitted on 12/16 for severe abdominal pain with CT showing 16.7 x 13.4 x 16.9 cm cystic mass arising from the left adnexa. 1. Adnexal mass - CT showing 16.7 x 13.4 x 16.9 cm cystic mass arising from the left adnexa concerning for malignancy. There is also a 2.9 x 3.5 cm mass in the right adrenal gland, may be benign however it is somewhat more concerning in light of the mass within the pelvis - CA 125 WNL - SUPERVISOR THROWING DEPARTMENT consulted, planning for exploratory laparotomy on Wednesday 2. Transaminitis - LFTs acutely elevated yesterday - AST 17 > 342 > 212 - ALT 22 > 216 > 376 - Hepatitis profile pending - GTT elevated suggestive of liver origin - Total bili up slightly to 1.5 - CT A/P on admission with normal appearance of liver - Check liver Doppler U/S. Malignancy puts her at risk for Budd-Chiari and with acute elevation will want to rule out thrombosis - Will also d/c Reglan - rare cause of hepatotoxicity but only medication recently started that is associated with liver injury - Also check acetaminophen level and INR - Avoid hepatotoxic agents - Consider GI consult 3. HTN - Well-controlled - Continue amlodipine - Clonidine PRN 3. HLD - Continue statin DVT prophylaxis: SCDs Code Status: Full Discussed Condition With: Patient and family
[2017-12-18 13:48] LABS: Hemoglobin A1c 5.2 % (4.3-6.0)
[2017-12-18 14:05] LABS: Total Protein 6.7 g/dL (6.4-8.2)
[2017-12-18 14:06] LABS: Thyroid Stimulating Hormone 1.58 uIU/mL (0.358-3.740)
[2017-12-18] MEDS: Enoxaparin Inj 40 MG/0.4 ML Syringe SQ SCH (15:07)
[2017-12-18 15:48] LABS: Hepatitits B Surface Antigen Nonreactive (Nonreactive)
[2017-12-18 16:16] LABS: Hepatitis A IgM Antibody Nonreactive (Nonreactive)
--- NOTE | 2017-12-18 16:36 | US ---
EXAM DATE: 12/18/2017 4:28 PM EDT AGE/SEX: 67 years / Female INDICATIONS: Portal hypertension. CLINICAL DATA: This is the patient's initial encounter. Patient reports that signs and symptoms have been present for 1 day and indicates a pain score of 0/10. MEDICAL/SURGICAL HISTORY: Hypertension. Hypercholesterolemia. Cholecystectomy. Hip replacement . COMPARISON: [facility], CT ABDOMEN & PELVIS W CONTRAST, 12/16/2017. . MEASUREMENTS: Liver:__ 16.8 cm. Common Bile Duct:___ 3mm. Right Kidney:___11.1 x 5.2 x 4.4 cm. Left Kidney:___ . Spleen:___ . FINDINGS: Liver: Normal echotexture without focal lesion or ductal dilatation. Portal Vein: Hepatopedal flow seen in portal vein. Common Duct: No intraluminal mass or stone visualized. Gallbladder: Surgically absent. Pancreas: Not well visualized. Right Kidney: Normal echotexture and cortical thickness. No mass or hydronephrosis. CONCLUSION: 1. Normal flow direction in the portal vein. Abdominal aorta is patent. No thrombosis identified. 2. Previous cholecystectomy. 3. Calcified granulomata in the liver and spleen. 4. 3 cm right adrenal mass. 5. Cystic lesion seen on CT in lower abdomen not evaluated on this exam. Electronically signed by: Paresh Guerra MD 12/18/2017 4:34 PM EDT
[2017-12-18 18:02] LABS: INR 1.2 Ratio; Prothrombin Time 12.4 sec (9.8-11.6)
[2017-12-19] MEDS: Sod Chloride 0.9% Inj 1,000 ML IV.CONT SCH ×2 (04:58→16:34)
[2017-12-19 07:56] LABS: Hematocrit 27.3 % (35.0-46.0); Mean Corpuscular HGB Conc 32.9 % (32.0-36.0); Mean Corpuscular Hemoglobin 30.2 pg (27.0-34.0); Mean Corpuscular Volume 91.7 fL (80.0-100.0); Platelet Count 168 th/mm3 (150-450); Red Blood Count 2.98 mil/mm3 (4.00-5.30); Red Cell Distribution Width 13.2 % (11.6-17.2); White Blood Count 11.1 th/mm3 (4.0-11.0)
[2017-12-19] MEDS: amLODIPine 10 MG Tablet PO SCH (08:02)
[2017-12-19] MEDS: Enoxaparin Inj 40 MG/0.4 ML Syringe SQ SCH (08:02)
[2017-12-19] MEDS: Senna/Docusate Sodium 8.6/50 MG Tablet PO SCH ×2 (08:02→20:36)
[2017-12-19 08:13] LABS: Alanine Aminotransferase 256 U/L (10-53); Albumin 2.7 g/dL (3.4-5.0); Anion Gap 6 meq/L (5-15); Aspartate Aminotransferase 104 U/L (15-37); Blood Urea Nitrogen 11 mg/dL (7-18); Calcium 8.7 mg/dL (8.5-10.1); Carbon Dioxide 27.6 meq/L (21.0-32.0); Chloride 106 meq/L (98-107); Glomerular Filtration Rate 71 mL/min (>89); Glucose,Random 95 mg/dL (74-106); Potassium 3.4 meq/L (3.5-5.1); Sodium 140 meq/L (136-145)
[2017-12-19 08:15] LABS: Alkaline Phosphatase 171 U/L (45-117)
[2017-12-19 09:12] LABS: % Iron Saturation 6.9 % (20-50)
--- NOTE | 2017-12-19 11:14 | P.OBGPN ---
HD 4/Pre op day -1 S feeling pretty good today tolerating food Voiding spontaneously anxious 0 AVSS liver sono reassuring LFTs are not continuing to climb abdomen unchanged A large right cystic ovarian mass with normal Ca125 and no ascites elevated LFTs for unclear etiology P to OR tomorrow following Dr. Magana' cases in his room [facility] with possible staging See orders
[2017-12-19] MEDS ORDERED: Bisacodyl 10 MG Supp RECTAL PRN (11:15)
[2017-12-19] MEDS ORDERED: ceFAZolin Inj 2,000 MG in Sodium Chlor 0.9% Inj 80 ML IV.SIG SCH (11:41)
--- NOTE | 2017-12-19 11:42 | P.PN ---
Subjective Interval history: Pt seen and examined for f/u of L adnexal mass. Family at the bedside. Tmax 101.3 overnight. Vitals otherwise stable. Patient otherwise asymptomatic and didn't realize she was febrile. She denies cough, dysuria, rash, or any other symptom aside from right-sided abdominal pain. She is planned for surgery tomorrow with Dr. Qureshi for ex-lap. Her only concern is some anxiety prior to the surgery. She requests something to help with her nerves. Physical Exam Vital signs: Vital Signs 12/18/17 12:00 12/18/17 16:00 12/18/17 17:41 Temperature 98.6 F 99.3 F Pulse Rate 79 86 Respiratory Rate 17 17 Blood Pressure 113/62 113/65 Pulse Oximetry 92 L 94 L 94 L 12/18/17 20:00 12/19/17 00:00 12/19/17 08:00 Temperature 99.3 F 101.3 F H 98.8 F Pulse Rate 93 H 85 97 H Respiratory Rate 16 16 17 Blood Pressure 128/58 L 127/60 126/69 Pulse Oximetry 91 L 91 L 90 L Intake & Output 12/18/17 12/19/17 12/19/17 18:59 06:59 18:59 Intake Total 3200 / 3200 240 / 240 Balance 3200 / 3200 240 / 240 Weight 101.6 kg Intake: IV 1000 / 1000 NS Inj 1,000 ML @ 100 mls/hr IV 1000 / 1000 .CONT .Q10H ALFRED Rx#:[id number] Oral 2200 / 2200 240 / 240 Other: # Voids 4 3 Narrative: GENERAL: WN, WD pleasant female sitting up in bed in [facility]. SKIN: Warm and dry. No jaundice. HEENT: AT/NC. Pupils equal and round. No scleral icterus. MMM. HEART: RRR no m/r/g. LUNGS: CTAB without wheezes or crackles. ABDOMEN: +BS, TTP over RLQ and RUQ. EXTREMITIES: No LE edema. 2+ pedal pulses. NEURO: Awake and alert. Nonfocal. PSYCH: Appropriate mood and affect. Results - Labs CBC & Chem 7: 12/19/17 06:23 12/19/17 06:23 Laboratory Results - last 24 hr 12/18/17 12/18/17 12/18/17 13:00 13:00 13:00 WBC 13.0 H RBC 3.22 L Hgb 9.9 L Hct 29.7 L MCV 92.1 MCH 30.8 MCHC 33.4 RDW 13.1 Plt Count 182 MPV 9.7 Neut % (Auto) 81.7 H Lymph % (Auto) 8.2 L [place] % (Auto) 9.9 H Eos % (Auto) 0.0 Baso % (Auto) 0.2 Neut # (Auto) 10.6 H Lymph # (Auto) 1.1 [place] # (Auto) 1.3 H Eos # (Auto) 0.0 Baso # (Auto) 0.0 WBC Differential . Differential Comment Auto diff final Haptoglobin PT INR Sodium Potassium Chloride Carbon Dioxide Anion Gap BUN Creatinine Estimated GFR Random Glucose Hemoglobin A1c 5.2 Calcium Iron TIBC % Saturation Ferritin Total Bilirubin 1.5 H Direct Bilirubin 0.6 H Indirect Bilirubin 0.9 H GGT 84 H AST 212 H ALT 376 H Alkaline Phosphatase 183 H Ammonia Lactate Dehydrogenase Total Protein 6.7 Albumin 3.0 L TSH 1.580 Acetaminophen Hepatitis A IgM Ab Hep Bs Antigen Hep B Core IgM Ab Hep C IgG Ab 12/18/17 12/18/17 12/18/17 13:00 14:06 17:21 WBC RBC Hgb Hct MCV MCH MCHC RDW Plt Count MPV Neut % (Auto) Lymph % (Auto) [place] % (Auto) Eos % (Auto) Baso % (Auto) Neut # (Auto) Lymph # (Auto) [place] # (Auto) Eos # (Auto) Baso # (Auto) WBC Differential Differential Comment Haptoglobin PT 12.4 H INR 1.2 Sodium Potassium Chloride Carbon Dioxide Anion Gap BUN Creatinine Estimated GFR Random Glucose Hemoglobin A1c Calcium Iron TIBC % Saturation Ferritin Total Bilirubin Direct Bilirubin Indirect Bilirubin GGT Cancelled AST ALT Alkaline Phosphatase Ammonia Lactate Dehydrogenase Total Protein Albumin TSH Acetaminophen Hepatitis A IgM Ab Nonreactive Hep Bs Antigen Nonreactive Hep B Core IgM Ab Nonreactive Hep C IgG Ab Nonreactive 12/18/17 12/18/17 12/19/17 17:21 17:21 06:23 WBC 11.1 H RBC 2.98 L Hgb 9.0 L Hct 27.3 L MCV 91.7 MCH 30.2 MCHC 32.9 RDW 13.2 Plt Count 168 MPV 10.0 Neut % (Auto) Lymph % (Auto) [place] % (Auto) Eos % (Auto) Baso % (Auto) Neut # (Auto) Lymph # (Auto) [place] # (Auto) Eos # (Auto) Baso # (Auto) WBC Differential Differential Comment Haptoglobin PT INR Sodium Potassium Chloride Carbon Dioxide Anion Gap BUN Creatinine Estimated GFR Random Glucose Hemoglobin A1c Calcium Iron TIBC % Saturation Ferritin Total Bilirubin Direct Bilirubin Indirect Bilirubin GGT AST ALT Alkaline Phosphatase Ammonia Less than 10 L Lactate Dehydrogenase Total Protein Albumin TSH Acetaminophen Less than 2.0 L Hepatitis A IgM Ab Hep Bs Antigen Hep B Core IgM Ab Hep C IgG Ab 12/19/17 12/19/17 06:23 06:23 WBC RBC Hgb Hct MCV MCH MCHC RDW Plt Count MPV Neut % (Auto) Lymph % (Auto) [place] % (Auto) Eos % (Auto) Baso % (Auto) Neut # (Auto) Lymph # (Auto) [place] # (Auto) Eos # (Auto) Baso # (Auto) WBC Differential Differential Comment Haptoglobin 212 H PT INR Sodium 140 Potassium 3.4 L Chloride 106 Carbon Dioxide 27.6 Anion Gap 6 BUN 11 Creatinine 0.81 Estimated GFR 71 L Random Glucose 95 Hemoglobin A1c Calcium 8.7 Iron 14 L TIBC 202 L % Saturation 6.9 L Ferritin 477 H Total Bilirubin 1.7 H Direct Bilirubin Indirect Bilirubin GGT AST 104 H ALT 256 H Alkaline Phosphatase 171 H Ammonia Lactate Dehydrogenase 147 Total Protein 6.0 L D Albumin 2.7 L TSH Acetaminophen Hepatitis A IgM Ab Hep Bs Antigen Hep B Core IgM Ab Hep C IgG Ab - Imaging Impressions Liver Ultrasound 12/18/17 00:00 CONCLUSION: 1. Normal flow direction in the portal vein. Abdominal aorta is patent. No thrombosis identified. 2. Previous cholecystectomy. 3. Calcified granulomata in the liver and spleen. 4. 3 cm right adrenal mass. 5. Cystic lesion seen on CT in lower abdomen not evaluated on this exam. Assessment and Plan - Assessment (1) Transaminitis Code(s): R74.0 - Nonspecific elevation of levels of transaminase and lactic acid dehydrogenase [LDH] Status: Acute (2) Adnexal mass Code(s): N94.9 - Unspecified condition associated with female genital organs and menstrual cycle Status: Acute - Plan 67 year old female with history of HTN and HLD admitted on 12/16 for severe abdominal pain with CT showing 16.7 x 13.4 x 16.9 cm cystic mass arising from the left adnexa. 1. Adnexal mass - CT showing 16.7 x 13.4 x 16.9 cm cystic mass arising from the left adnexa concerning for malignancy. There is also a 2.9 x 3.5 cm mass in the right adrenal gland, may be benign however it is somewhat more concerning in light of the mass within the pelvis - CA 125 WNL - RAT POISONER consulted, planning for exploratory laparotomy tomorrow likely late afternoon - D/C Dr. Qureshi, will provide clear liquids for breakfast then NPO following - Hold anticoagulation 2. Transaminitis - LFTs acutely elevated but now trending down - AST 17 > 342 > 212 > 104 - ALT 22 > 216 > 376 > 256 - Alk phosphatase also elevated and bili mildly up to 1.5 - Hepatitis profile negative - GTT elevated suggestive of liver origin - CT A/P on admission with normal appearance of liver - Liver Doppler U/S with no portal vein thrombosis and normal appearance of liver. GB is surgically absent - Acetaminophen level WNL - Avoid hepatotoxic agents 3. HTN - Well-controlled - Continue amlodipine - Clonidine PRN 4. HLD - D/C statin in light of elevated LFTs 5. Incidental adrenal mass - Visualized on both CT and ultrasound - Discussed findings with patient - She is going to follow this up as an outpatient 6. Anxiety - Xanax PRN DVT prophylaxis: SCDs, hold Lovenox tomorrow AM Discussed Condition With: The patient and her family
[2017-12-19] MEDS ORDERED: ALPRAZolam 0.5 MG Tablet PO PRN (14:22)
--- NOTE | 2017-12-19 14:22 | XR ---
EXAM DATE: 12/19/2017 2:10 PM EDT AGE/SEX: 67 years / Female INDICATIONS: . Fever. Congestion. CLINICAL DATA: This is the patient's subsequent encounter. Patient reports that signs and symptoms h ave been present for 3 days and indicates a pain score of 4/10. MEDICAL/SURGICAL HISTORY: None. None. COMPARISON: [facility] [place], 07/29/[place]. . FINDINGS: There is mild basilar airspace disease. Differential diagnosis includes pneumonia in patient with his tory of fever congestion. Trace pleural effusions. No pneumothorax. CONCLUSION: Mild basilar airspace disease with small pleural effusions. Differential diagnosis includes bronchopn eumonia in patient with history of fever. Electronically signed by: Paresh Guerra MD 12/19/2017 2:20 PM EDT
[2017-12-19 17:30] LABS: Alpha Fetoprotein Tumor Marker 1.2 ng/mL (0.5-8.0); Carcinoembryonic Antigen 1.1 ng/mL (0.2-5.0)
[2017-12-20] MEDS: Sod Chloride 0.9% Inj 1,000 ML IV.CONT SCH ×3 (05:06→22:13)
[2017-12-20] MEDS ORDERED: Chlorhexidine Gluconate 2% 1 Pack (2 Cloths) TOPICAL SCH (05:30)
[2017-12-20] MEDS ORDERED: Metoprolol Tartrate 25 MG Tablet PO SCH (05:30)
[2017-12-20] MEDS ORDERED: Sodium Chlor 0.9% Inj 500 ML IV.SIG SCH (06:00)
[2017-12-20 06:13] LABS: Baso # (Auto) 0.1 th/mm3 (0.0-0.2); Baso % (Auto) 0.8 % (0.0-2.0); Eos # (Auto) 0.1 th/mm3 (0.0-0.4); Eos % (Auto) 0.7 % (0.0-4.0); Hematocrit 25.1 % (35.0-46.0); Hemoglobin 8.6 gm/dL (11.6-15.3); Lymph # (Auto) 1.2 th/mm3 (1.0-4.8); Lymph % (Auto) 12.3 % (9.0-44.0); Mean Corpuscular HGB Conc 34.1 % (32.0-36.0); Mean Corpuscular Hemoglobin 31.1 pg (27.0-34.0); Mean Corpuscular Volume 91.3 fL (80.0-100.0); Mean Platelet Volume 9.8 fL (7.0-11.0); Mono % (Auto) 10.6 % (0.0-8.0); Neut # (Auto) 7.2 th/mm3 (1.8-7.7); Neut % (Auto) 75.6 % (16.0-70.0); Platelet Count 178 th/mm3 (150-450); Red Blood Count 2.75 mil/mm3 (4.00-5.30); Red Cell Distribution Width 12.8 % (11.6-17.2); White Blood Count 9.5 th/mm3 (4.0-11.0)
[2017-12-20 06:19] LABS: Activated Partial Thrombo Time 29.1 sec (24.3-30.1); INR 1.1 Ratio; Prothrombin Time 11.3 sec (9.8-11.6)
[2017-12-20 06:36] LABS: Albumin 2.5 g/dL (3.4-5.0); Anion Gap 8 meq/L (5-15); Aspartate Aminotransferase 47 U/L (15-37); Blood Urea Nitrogen 8 mg/dL (7-18); Calcium 8.3 mg/dL (8.5-10.1); Carbon Dioxide 27.1 meq/L (21.0-32.0); Chloride 103 meq/L (98-107); Glomerular Filtration Rate 76 mL/min (>89); Glucose,Random 93 mg/dL (74-106); Potassium 3.3 meq/L (3.5-5.1); Sodium 138 meq/L (136-145)
[2017-12-20 06:40] LABS: Alanine Aminotransferase 176 U/L (10-53); Alkaline Phosphatase 159 U/L (45-117)
[2017-12-20] MEDS: Aztreonam Inj 2 GM in Sodium Chloride 0.9% Inj 100 ML IV.SIG SCH ×3 (07:24→23:06)
[2017-12-20] MEDS: amLODIPine 10 MG Tablet PO SCH (09:18)
[2017-12-20] MEDS: Senna/Docusate Sodium 8.6/50 MG Tablet PO SCH ×2 (09:20→22:13)
[2017-12-20] MEDS: Azithromycin 250 MG Tablet PO SCH (09:20)
--- NOTE | 2017-12-20 09:32 | P.CON ---
History of Present Illness Service: [facility]/ONC Consult date: 12/20/17 Requesting Physician: Mattie Qureshi Reason for Consult: pelvic mass Primary Care Provider: UNKNOWN Family Provider: Amada Dorantes Chief Complaint: Pain History of Present Illness: This is a 67 year old female who was in her normal state of health until Wednesday last week when she started having some back pain. 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 She states by Wednesday the pain was not tolerable therefore she presented to [facility] for further evaluation. Upon imaging she was found to have a large mostly cystic abdominal/pelvic mass 16.7 x 13.4 x 16.9 cm arising from left adnexa and a 2.9 x 3.5 cm mass in the right adrenal gland that is fairly low density. Patient was seen in consultation by Dr. Charisma Qureshi and is scheduled for surgery this afternoon. I was asked to see her as Dr. Magana and Dr. Veronica will be working together during this surgery. 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 She denies any PMH of abnormal pap smears. She states the abdominal pain is tolerable at this time it comes and goes, she has also been having constipation. She has not felt feverish during her hospital stay but her temp was up as high as 101.3 Her H/H has been trending down during her stay and her liver enzymes have been elevated. Patient denies any use of Tylenol for pain. I explained we are not sure if these abnormalities are due to mass torsion, cutting off it's blood supply, or other etiology, but that is our concern. I explained in detail the pros, cons, risks and benefits for both laparoscopic vs. laparotomy surgery. I explained that it is about a 50/50 chance that this surgery can be started and completed using the [employer] tool ( laparoscopic surgery), as long as Mrs. Webber is agreeable to removal of mass as well as both ovaries, fallopian tubes, uterus and cervix. Mrs. Webber is very much in favor of total hysterectomy and the possibility of staging depending on frozen section results. All questions were answered to patient's satisfaction. Review of Systems Gastrointestinal: Reports constipation Comments: back pain PMFSH - History History Provided By: Patient, Family Member - Medical History Medical History: Medical History (Last Updated 12/16/17 @ 07:00 by Jacqui De Jesus RN) Constipation History of revision of total replacement of right hip joint Hypercholesterolemia Hypertension - Surgical History Surgical History: Surgical History (Last Updated 12/16/17 @ 07:00 by Jacqui De Jesus RN) History of cholecystectomy Previous section - Family History Family History: Family History (Last Updated 12/16/17 @ 13:04 by Peng Mancia DO) Other Renal cancer - Tobacco History Second Hand Smoke Exposure: No Smoking Status: Never smoker Tobacco Type: Cigarettes - Alcohol History How Often Do You Have a Drink Containing Alcohol: Never - Substance Use History Substance History: No History of Abuse - Travel History Recent Travel in the [place] Within the Last 8 Weeks: No Recent Travel Out of the Country Within the Last 8 Weeks: No - Immunization History Tetanus Immunization: >5 Years Hx Influenza Vaccine This Season: No Medications and Allergies Active Medications: Active Medications Al Hydroxide/Mg Hydroxide (Milk Of Eneida Liyary) 30 ml PO Q12H PRN PRN Reason: Mild Constipation Last Admin: 12/19/17 16:35 Dose: 30 ml Alprazolam (Xanax) 0.5 mg PO Q6H PRN PRN Reason: ANXIETY Amlodipine Besylate (Norvasc) 10 mg PO DAILY [facility] Last Admin: 12/19/17 08:02 Dose: 10 mg Azithromycin (Zithromax) 500 mg PO Q24H [facility]FRED Bisacodyl (Dulcolax Supp) 10 mg RECTAL DAILY PRN PRN Reason: SEVERE CONSITIPATION Chlorhexidine Gluconate (Chlorhexidine 2% Cloth) 3 pack TOPICAL BEADER TENDER [facility] Stop: 12/23/17 05:16 Hydromorphone HCl (Dilaudid Pf Inj) 1 mg IV.PUSH Q4H PRN PRN Reason: BREAKTHROUGH PAIN Last Admin: 12/17/17 09:31 Dose: 1 mg Sodium Chloride (Ns Inj) 1,000 mls @ 100 mls/hr IV.CONT .Q10H [facility] Last Admin: 12/20/17 05:06 Dose: 100 mls/hr Cefazolin Sodium 2,000 mg/ (Sodium Chloride) 100 mls @ 200 mls/hr IV.SIG BEADER TENDER [facility] Stop: 12/22/17 11:40 Lactated Ringer's (Lr 1000 Ml Inj) 1,000 mls @ 30 mls/hr IV.SIG .Q24H [facility] Stop: 12/23/17 05:16 Sodium Chloride (Ns Inj) 500 mls @ 30 mls/hr IV.SIG .Q10H [facility] Stop: 12/23/17 05:16 Aztreonam 2 gm/ Sodium (Chloride) 100 mls @ 200 mls/hr IV.SIG Q8H [facility] Last Infusion: 12/20/17 07:52 Dose: Infused Lactulose (Lactulose Liq) 30 ml PO DAILY PRN PRN Reason: SEVERE CONSITIPATION Last Admin: 12/19/17 14:26 Dose: 30 ml Metoprolol Tartrate (Lopressor) 25 mg PO BEADER TENDER [facility] Stop: 12/23/17 05:16 Ondansetron HCl (Zofran Inj) 4 mg IV.PUSH Q6H PRN PRN Reason: NAUSEA OR VOMITING Oxycodone HCl (Roxicodone) 10 mg PO Q4H PRN PRN Reason: pain 7-10 Last Admin: 12/20/17 00:53 Dose: 10 mg Oxycodone HCl (Roxicodone) 5 mg PO Q4H PRN PRN Reason: pain 3-6 Povidone Iodine (Betadine 5% Antisepsis Kit) 1 applicatio EACH NARE BEADER TENDER [facility] Stop: 12/23/17 05:16 Senna/Docusate Sodium (Juju-Colace) 1 tab PO BID [facility] Last Admin: 12/19/17 20:36 Dose: 1 tab Sennosides (Senokot) 17.2 mg PO Q12H PRN PRN Reason: Moderate Constipation Sodium Chloride (Ns Flush) 2 ml IV.FLUSH PRN PRN PRN Reason: FLUSH AFTER USING IV ACCESS Last Admin: 12/16/17 12:45 Dose: 2 ml Temazepam (Restoril) 15 mg PO HS PRN PRN Reason: INSOMNIA Allergies Allergy/AdvReac Type Severity Reaction Status Date / Time amoxicillin [From Augmentin] Allergy Rash, Verified 12/16/17 07:05 Generalized clavulanic acid Allergy Rash, Verified 12/16/17 07:05 [From Augmentin] Generalized Home Medications Medication Instructions Recorded Confirmed Type amlodipine 10 mg PO DAILY 12/16/17 12/16/17 History cholecalciferol (vitamin D3) 1,000 unit PO DAILY 12/16/17 12/16/17 History [Vitamin D3] multivitamin 1 tab PO DAILY 12/16/17 12/16/17 History Physical Exam Vital signs: Vital Signs 12/19/17 12:00 12/19/17 16:00 12/19/17 19:59 Temperature 99.6 F 98.5 F 98.5 F Pulse Rate 101 H 100 H 85 Respiratory Rate 17 17 16 Blood Pressure 127/58 L 125/56 L 121/64 Pulse Oximetry 90 L 90 L 91 L 12/20/17 00:00 12/20/17 08:00 Temperature 99.2 F 98.3 F Pulse Rate 79 103 H Respiratory Rate 16 16 Blood Pressure 140/66 158/68 H Pulse Oximetry 91 L 93 L Intake & Output 12/19/17 12/20/17 12/20/17 18:59 06:59 18:59 Intake Total 1959 / 1959 1000 / 1000 100 / 100 Balance 1959 / 1959 1000 / 1000 100 / 100 Weight 102 kg Intake: IV 1000 / 1000 1000 / 1000 100 / 100 NS Inj 1,000 ML @ 100 mls/hr IV 1000 / 1000 1000 / 1000 .CONT .Q10H [facility]FR[facility] Rx#:[id number] Azactam Inj 2 GM In NS Inj 100 100 / 100 ML @ 200 mls/hr IV.SIG Q8H ALFRED Rx#:[id number] Oral 960 / 960 0 / 0 Other: # Voids 4 3 - Constitutional no acute distress - Routine HEENT Exam Head: Present: normocephalic, atraumatic Eye: Present: EOMI, PERRL - Routine Neck Exam Present: supple - Routine Respiratory Exam Present: CTA bilaterally - Routine Cardiovascular Exam Present: RRR - Routine Abdominal Exam Present: soft, surgical scars - Routine Skin Exam Present: intact - Routine Neurological Exam Present: alert, oriented X3, normal speech - Detailed Neurological Exam: Coma Scale Eye Opening: Spontaneous Verbal Response: Oriented - Routine Psychiatric Exam Present: normal affect, normal thought process Assessment and Plan - Assessment (1) Pelvic mass in female Code(s): R19.00 - Intra-abdominal and pelvic swelling, mass and lump, unspecified site Status: Acute - Plan patent is scheduled for surgery today with Dr. Qureshi and Dr. Magana 50/50 laparoscopic vs. laparotomy surgery, reviewed both approaches with patient frozen section will be sent patient has 2 daughters that will be at the hospital this afternoon post op recovery depending on surgical approach, reviewed with patient If a malignancy is detected then patient will follow up with appraiser/onc once discharged from hospital for further discussion of options/management. Discussed Condition With: Patient Dr. Magana - Attending Attestation Discussed with Dr. Magana and he is in agreement.
--- NOTE | 2017-12-20 10:01 | P.PN ---
Subjective Interval history: Pt seen and examined for f/u L adnexal mass. CXR overnight done showing bronchopneumonia. Started on IV antibiotics this morning. She noted that she has been coughing up more phlegm but seems to be breathing okay without wheezing or dyspnea. She endorses constant pain in her abdomen that has mostly been on the right side but she states it now starting to shift more to the left. She hasn't had a bowel movement in approximately five days. Her biggest concern is feeling anxious about surgery and that everything is "coming apart." She wants to be able to proceed and get the surgery over with so she has answers. She denies CP, N/V. Ambulating with PT. Physical Exam Vital signs: Vital Signs 12/19/17 12:00 12/19/17 16:00 12/19/17 19:59 Temperature 99.6 F 98.5 F 98.5 F Pulse Rate 101 H 100 H 85 Respiratory Rate 17 17 16 Blood Pressure 127/58 L 125/56 L 121/64 Pulse Oximetry 90 L 90 L 91 L 12/20/17 00:00 12/20/17 08:00 Temperature 99.2 F 98.3 F Pulse Rate 79 103 H Respiratory Rate 16 16 Blood Pressure 140/66 158/68 H Pulse Oximetry 91 L 93 L Intake & Output 12/19/17 12/20/17 12/20/17 18:59 06:59 18:59 Intake Total 1959 1000 / 1000 100 / 100 Balance 1959 1000 / 1000 100 / 100 Weight 102 kg Intake: IV 1000 / 1000 1000 / 1000 100 / 100 NS Inj 1,000 ML @ 100 mls/hr IV 1000 / 1000 1000 / 1000 .CONT .Q10H ALFRED Rx#:[id number] Azactam Inj 2 GM In NS Inj 100 100 / 100 ML @ 200 mls/hr IV.SIG Q8H ALFRED Rx#:[id number] Oral 960 / 960 0 / 0 Other: # Voids 4 3 Narrative: GENERAL: WN, WD pleasant female sitting up in bed in [place]. SKIN: Warm and dry. No jaundice. HEENT: AT/NC. Pupils equal and round. No scleral icterus. MMM. HEART: RRR no m/r/g. LUNGS: Diminished at the R base with some faint crackles otherwise clear without wheezing. ABDOMEN: +BS with diffuse TTP and some firmness of the abdomen. EXTREMITIES: No LE edema. 2+ pedal pulses. NEURO: Awake and alert. Nonfocal. PSYCH: Appropriate mood and affect. Results - Labs CBC & Chem 7: 12/20/17 05:23 12/20/17 05:23 Laboratory Results - last 24 hr 12/19/17 12/19/17 12/19/17 06:23 15:40 15:40 WBC RBC Hgb Hct MCV MCH MCHC RDW Plt Count MPV Neut % (Auto) Lymph % (Auto) Page % (Auto) Eos % (Auto) Baso % (Auto) Neut # (Auto) Lymph # (Auto) [place] # (Auto) Eos # (Auto) Baso # (Auto) WBC Differential Differential Comment Haptoglobin 212 H PT INR APTT Sodium Potassium Chloride Carbon Dioxide Anion Gap BUN Creatinine Estimated GFR Random Glucose Calcium Total Bilirubin AST ALT Alkaline Phosphatase Total Protein Albumin Tumor Marker AFP 1.2 Carcinoembryonic Ag 1.1 CA 19-9 Antigen Blood Type O Positive Antibody Screen Negative 12/19/17 12/20/17 12/20/17 15:40 05:23 05:23 WBC 9.5 RBC 2.75 L Hgb 8.6 L Hct 25.1 L MCV 91.3 MCH 31.1 MCHC 34.1 RDW 12.8 Plt Count 178 MPV 9.8 Neut % (Auto) 75.6 H Lymph % (Auto) 12.3 Page % (Auto) 10.6 H Eos % (Auto) 0.7 Baso % (Auto) 0.8 Neut # (Auto) 7.2 Lymph # (Auto) 1.2 Page # (Auto) 1.0 H Eos # (Auto) 0.1 Baso # (Auto) 0.1 WBC Differential . Differential Comment Auto diff final Haptoglobin PT 11.3 INR 1.1 APTT 29.1 Sodium Potassium Chloride Carbon Dioxide Anion Gap BUN Creatinine Estimated GFR Random Glucose Calcium Total Bilirubin AST ALT Alkaline Phosphatase Total Protein Albumin Tumor Marker AFP Carcinoembryonic Ag CA 19-9 Antigen 38.2 H Blood Type Antibody Screen 12/20/17 05:23 WBC RBC Hgb Hct MCV MCH MCHC RDW Plt Count MPV Neut % (Auto) Lymph % (Auto) [place] % (Auto) Eos % (Auto) Baso % (Auto) Neut # (Auto) Lymph # (Auto) [place] # (Auto) Eos # (Auto) Baso # (Auto) WBC Differential Differential Comment Haptoglobin PT INR APTT Sodium 138 Potassium 3.3 L Chloride 103 Carbon Dioxide 27.1 Anion Gap 8 BUN 8 Creatinine 0.76 Estimated GFR 76 L Random Glucose 93 Calcium 8.3 L Total Bilirubin 1.3 H AST 47 H ALT 176 H Alkaline Phosphatase 159 H Total Protein 6.0 L Albumin 2.5 L Tumor Marker AFP Carcinoembryonic Ag CA 19-9 Antigen Blood Type Antibody Screen - Imaging Impressions Liver Ultrasound 12/18/17 00:00 CONCLUSION: 1. Normal flow direction in the portal vein. Abdominal aorta is patent. No thrombosis identified. 2. Previous cholecystectomy. 3. Calcified granulomata in the liver and spleen. 4. 3 cm right adrenal mass. 5. Cystic lesion seen on CT in lower abdomen not evaluated on this exam. Chest X-Ray 12/19/17 00:00 CONCLUSION: Mild basilar airspace disease with small pleural effusions. Differential diagnosis includes bronchopneumonia in patient with history of fever. Assessment and Plan - Assessment (1) Transaminitis Code(s): R74.0 - Nonspecific elevation of levels of transaminase and lactic acid dehydrogenase [LDH] Status: Acute (2) Adnexal mass Code(s): N94.9 - Unspecified condition associated with female genital organs and menstrual cycle Status: Acute (3) Pneumonia Code(s): J18.9 - Pneumonia, unspecified organism Status: Acute - Plan 67 year old female with history of HTN and HLD admitted on 12/16 for severe abdominal pain with CT showing 16.7 x 13.4 x 16.9 cm cystic mass arising from the left adnexa. 1. Adnexal mass - CT showing 16.7 x 13.4 x 16.9 cm cystic mass arising from the left adnexa concerning for malignancy. There is also a 2.9 x 3.5 cm mass in the right adrenal gland, may be benign however it is somewhat more concerning in light of the mass within the pelvis - CA 125 WNL - FRAME TABLE OPERATOR consulted, d/w Dr. Qureshi. Planning for exploratory laparotomy today 2. Transaminitis - Unclear etiology, ?shock liver but patient never became hypotensive or septic - LFTs acutely elevated but now trending down - AST 17 > 342 > 212 > 104 > 47 - ALT 22 > 216 > 376 > 256 > 176 - Alk phosphatase also elevated and bili mildly up to 1.5 - Hepatitis profile negative - GTT elevated suggestive of liver origin - CT A/P on admission with normal appearance of liver - Liver Doppler U/S with no portal vein thrombosis and normal appearance of liver. GB is surgically absent - Acetaminophen level WNL - Avoid hepatotoxic agents 3. Pneumonia - CXR showing mild basilar airspace disease - Remains afebrile but had a Tmax of 101.3 two nights ago - No leukocytosis this AM - Since patient developed the fever with CXR findings of possible PNA in the hospital, will treat for HCAP - Allergic to PCN so will treat with Aztreonam and Azithromycin - Supplemental O2 to maintain sats >92% - DuoNeb PRN - Incentive spirometer - Tylenol PRN fever - Encourage OOB 4. HTN - Well-controlled - Continue amlodipine - Clonidine PRN 5 HLD - D/C statin in light of elevated LFTs 6. Incidental adrenal mass - Visualized on both CT and ultrasound - Discussed findings with patient - She is going to follow this up as an outpatient 7. Anxiety - Xanax PRN 8. Anemia - Iron studies with mixed picture, likely combination of iron deficiency and anemia of chronic disease - Continue to monitor, especially post-op for blood loss - Hemodynamically stable - Transfuse if Hb<7 DVT prophylaxis: SCDs, hold Lovenox for surgery Discussed Condition With: The patient and her family
[2017-12-20] MEDS ORDERED: Phenylephrine/NS 1000 MCG/10ML Syringe IV.PUSH ONE (12:00)
[2017-12-20] MEDS ORDERED: Lidocaine PF 1% Inj 5 ML Syringe INFILTRATN ONE (12:00)
--- NOTE | 2017-12-20 12:27 | MB ---
cc: Gerda Magana MD, Tara A MD Carbiener,Mattie Sharpe,Nando Castellano MD DATE: 12/20/2017 PHYSICIAN REQUESTING CONSULTATION: Dr. Mattie Qureshi. REASON FOR CONSULTATION: Large pelvic mass of probable ovarian origin, pain. She is seen and evaluated by me, her findings are reviewed, and she is counseled by me in conjunction with our nurse practitioner (Violette Knapp). I agree with her above findings, assessment, and plan of care. HISTORY OF PRESENT ILLNESS: This is a 67-year-old female who last week started feeling poorly, initially with back pain, progressing to lower pelvic, lower abdominal pain for which she presented to the hospital and was admitted on Wednesday. Exam and imaging showed a large mass in the pelvis, extending up to the abdomen, thought to be of probable ovarian origin. The mass is well demarcated, predominantly cystic with some peripheral enhancement and some solid changes peripherally. CA-125 was not appreciably elevated. CAT scan showed no overt evidence of disease beyond this mass. There is no adenopathy. There is no intraperitoneal fluid, and no omental thickening, nodularity or other changes on this noncontrasted study. Pelvic ultrasound is obtained, which confirmed these findings. The uterus itself is enlarged to approximately 11 cm without other significant abnormality not well visualized on ultrasound. During her hospitalization, she did have 1 fever elevation to 101.3 degrees. She is currently afebrile. Chest x-ray suggested possibly some changes consistent with pneumonia. She has been started on antibiotics. On her labs, white count was 11.5 on admission, currently 9.5; H and H were 11.8 and 35.8, currently 8.6 and 25.9; platelets remained normal at 178. Coags with an INR 1.2. Electrolytes show a slightly low potassium, elevated bilirubin and elevated transaminases of uncertain etiology. She is seen now in consultation for further evaluation and recommendations regarding these findings. PAST MEDICAL HISTORY: Elevated cholesterol and hypertension. PAST SURGICAL HISTORY: She has had a right hip replacement. FAMILY HISTORY: Notable for renal cell carcinoma. SOCIAL HISTORY: She has a good supportive family. Many of the family members are present today during our discussion. MEDICATIONS: As reviewed and as documented in the chart. ALLERGIES: INCLUDE AMOXICILLIN AND CLAVULANIC ACID. REVIEW OF SYSTEMS: As per history of present illness. Also been associated with constipation. It has been a number of days since she has had a bowel movement, which is contributing at least in part of some of her discomfort. She tends to have chronic constipation. She has had no bright red blood or melenotic stool change. She has not felt feverish prior to this admission. No nausea or vomiting. No headaches or other systemic symptoms other than as previously described. Also some cough, at times productive. PHYSICAL EXAMINATION: VITAL SIGNS: Currently afebrile, pulse 79, respirations 16, blood pressure 140/66, O2 saturation 91%, which has been consistent since admission. GENERAL: She is alert and oriented x 3, no acute distress, a bit anxious and in some mild discomfort. HEENT: Pupils equal, round, reactive to light. Moist mucous membrane. SKIN: Color slightly pale. HEART: Regular rate and rhythm. LUNGS: With basilar rales, otherwise clear. ABDOMEN: Has a well demarcated mass effect in the lower mid abdomen extending approximately 8 cm above the umbilicus. It is smooth walled, limited mobility and her pain and discomfort on exam seemed consistent with the presence of this mass and she is uncomfortable in all 4 quadrants, especially overlying the outline of the mass. PELVIC: Deferred until exam under anesthesia. EXTREMITIES: Peripheral pulses intact. Time is spent in discussion with her reviewing the findings in her case to date. I explained the reason for [facility] Oncology consultation. Reminded her that I am working with Dr. Qureshi, as well as Violette Knapp, both of whom she has previously met. I explained that there are benign growths that can present as these large masses. There are borderline ovarian tumors and there are invasive cancers. The reason for her pain is uncertain, although possibilities are discussed. There has been on imaging no overt evidence of rupture. Bleeding into the mass is a possibility, especially given that her hemoglobin has trended downward. It is also possible that this is torsed or intermittently torsing, which could be a likely explanation for why she has suddenly and in recent days persistently felt poorly. Whether this is benign or malignant, we know that once it reaches this size it will not resolve on its own and the best way to resolve it, as well as clarify the diagnosis is with surgical resection. We have discussed pros, cons, risks and benefits of laparoscopy including robotics versus exploratory laparotomy and I explained to her that there is at least a 50:50 chance that we would need to do the surgery through a laparotomy and I compared and contrasted the surgeries, the recovery and other steps involved. At a minimum, I would recommend we remove both tubes and ovaries. If this mass is benign, then the hysterectomy is a judgment call depending on her preference and our findings. She is strongly in favor of hysterectomy after discussion of the pros and cons of that. Conversely, if this is a malignancy then we would absolutely recommend removal of the uterus and cervix as well as the tubes and ovaries and additional staging biopsies which may include, but are not limited to, omentectomy, lymph node biopsies, peritoneal biopsies, possibly others. She had questions regarding recovery, the potential need for treatment after surgery and other questions that were answered to the best of my capacity, some of which could not be answered until we have additional details from surgery and pathology report. She and her family expressed good understanding and we will move forward with surgery this afternoon as discussed. ASSESSMENT: 1. Large pelvic mass of probable ovarian origin, predominantly cystic but with some peripheral solid nodularity and thickening. 2. Pain of uncertain etiology; although torsion remains a possibility, other things must be considered. 3. Elevated transaminases and trending downward hemoglobin. 4. Extensive discussion. PLAN: 1. Continue n.p.o., IV fluids, IV antibiotics and supportive care. 2. Anticipate moving forward with surgery later today. We will do an examination under anesthesia and possibly assess laparoscopically to determine if this can be addressed laparoscopically versus exploratory laparotomy. I will be working in conjunction with Dr. Qureshi. MD GEORGE Gan/DORIE , 11:45 AM , 12:03 PM
[2017-12-20 14:08] LABS: Reticulocyte Percent 1.2 % (0.4-3.0)
--- NOTE | 2017-12-20 14:09 | MB ---
cc: Shereen Rene MD DATE: 12/20/2017 CHIEF COMPLAINT: 1. Anemia. 2. Pelvic mass. HISTORY OF PRESENT ILLNESS: Ms. Webber is a 67-year-old lady with a history of hypertension, hyperlipidemia, obesity, who was admitted to the hospital on 12/16/2017 with severe lower abdominal pain and pelvic pain. The patient reports that the pain began approximately a couple days prior to hospital presentation and was quite severe on the morning of hospital presentation. She also reported that the pain radiated to her back. She did not have any accompanying bowel issues. She denied any blood in her stool, melena, diarrhea. She reported some mild constipation. No fever. She did have some mild nausea. ROS as in HPI, all other negative LABORATORY STUDIES ON ADMISSION: White blood cell count 11.5, hemoglobin 11.8, MCV is 90, platelet count is 224. ANC is 9.4. Chemistry studies with sodium 143, potassium 3.4, creatinine 0.93, estimated GFR is 60. AST 17, ALT 22, alkaline phosphatase is 118, total protein 7.3, albumin 3.9. IMAGING STUDIES FROM ADMISSION: CT scan of the abdomen and pelvis with a 16.7 x 13.4 x 16.9 cm cystic mass arising from the left adnexa concerning for malignancy. She also had a 2.9 x 3.5 cm mass in the right adrenal gland, which is low density, may be benign; however, it is somewhat concerning in light of the mass within the pelvis. Recommend MRI of the abdomen for further evaluation. Pelvic ultrasound with large complex cystic mass in the pelvis as seen on recent CT. No free fluid. 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 Uterus and ovaries are not well visualized. Liver ultrasound with normal flow in the direction of the portal vein. Abdominal aorta is patent. No thrombosis identified. Previous cholecystectomy, calcified granulomata in the liver and spleen, 3 cm right adrenal mass, cystic lesion seen on CT scan, not visualized on this exam. Chest x-ray with mild basilar airspace disease with small pleural effusions. He was admitted to the Internal Medicine Service and was consulted on by the Gynecology Service with Dr. Qureshi who planned for a total abdominal hysterectomy and bilateral salpingo-oophorectomy. A Gynecology Oncology Team is also following and will plan to assist with surgical management. LABORATORY STUDIES: Include total bilirubin of 1.5, direct bilirubin 0.6, indirect bilirubin of 0.9, AST 212, ALT is 376, alkaline phosphatase is 183. TSH is 1.58. CA-125 is 17.6. Coags with INR 1.1, PT 11.3 and APTT is 29.1. PAST MEDICAL HISTORY: 1. Hypertension. 2. Hyperlipidemia. PAST SURGICAL HISTORY: 1. Hip surgery. 2. Laparoscopic removal of gallbladder. 3. Three C-sections. FAMILY HISTORY: Mother with a history of kidney cancer. SOCIAL HISTORY: No tobacco, alcohol or illegal drug use. She has a good support system with her family in town. HOSPITAL MEDICATIONS: Include: 1. Albuterol. 2. Xanax. 3. Amlodipine. 4. Azithromycin. 5. Metoprolol. 6. Zofran. 7. Oxycodone. PHYSICAL EXAMINATION: VITAL SIGNS: Temperature 98.2, pulse 88, respiratory rate 16, blood pressure 143/62, pulse oximetry is 93%. GENERAL: Overweight lady in no distress, resting comfortably in bed. HEENT: Normocephalic, atraumatic. NECK: Supple. No palpable lymphadenopathy. CARDIOVASCULAR: Regular rate and rhythm with no murmurs. RESPIRATORY: Clear to auscultation bilaterally. ABDOMEN: Protuberant. Soft. Tenderness to palpation in the lower abdomen. EXTREMITIES: No edema. NEUROLOGIC: Grossly nonfocal. PSYCHIATRIC: Anxious pending her upcoming surgery. ASSESSMENT: 1. Anemia. Uncertain of baseline hemoglobin as we do not have any recent complete blood counts prior to admission. Hemoglobin on admission was 11.8 and has subsequently declined during her hospital stay. It was 10 on 12/17/2017, 9.9 on 12/18/2017, 9 on 12/19/2017 and then 8.6 on 12/20/2017. She is normocytic with an mean corpuscular volume that is approximately 91. Platelet count is also within normal limits. She does have intermittently elevated absolute neutrophil count and absolute monocyte count on differential. Haptoglobin checked and haptoglobin is elevated at 212. Iron studies with iron level of 14, total iron binding capacity of 203, percent sat of 6.9 and ferritin level of 477. Total bilirubin is elevated at 1.5 with direct bilirubin 0.6 and indirect bilirubin of 0.9. LDH is within normal limits. No evidence for underlying hemolysis. Iron studies are indicative of anemia of chronic disease and chronic inflammation. Given known adnexal mass which is highly suspicious for ovarian malignancy, this could certainly be the cause of her abnormal iron studies. She does not have any evidence for underlying bone marrow abnormality. Platelet count within normal limits. White blood cell count intermittently elevated, but does return to normal. This will need to be followed in the outpatient setting. No evidence of hemolysis. No evidence of bleeding. The patient denies vaginal bleeding, blood in urine, visible blood in stool. We will check stool for occult blood. No past evidence of anemia. Creatinine is normal. She does have some mild decrease in her estimated glomerular filtration rate which may be contributing slightly in the development of anemia in a previously non-anemic patient after hospitalization; this is usually multifactorial and includes bleeding following invasive procedure, blood drawn for diagnostic studies and occult bleeding and there is also a blunted erythropoietic response to critical illness and then she can also have some hemodilution due to intravenous fluids. We will check reticulocyte count. Also, check vitamin B12 and folate. We will check smear for pathology review. She has no evidence of disseminated intravascular coagulation. We will check a fibrinogen level. 2. Elevated transaminases, uncertain of etiology. No evidence for hepatitis. We will recheck this. We will also recheck direct bilirubinemia. Inpatient Hematology Service will continue to follow this patient. MD VIELKA Moore/KEVIN , 01:29 PM , 01:42 PM SHASHI
[2017-12-20] MEDS ORDERED: Famotidine PF Inj 20 MG/2 ML Vial ONE ×2 (14:50→15:37)
[2017-12-20 15:05] LABS: Albumin 2.6 g/dL (3.4-5.0)
[2017-12-20 15:31] LABS: Folate 16.6 ng/mL (3.1-17.5)
[2017-12-20] MEDS ORDERED: Sugammadex Inj 200 MG/2 ML Vial IV.PUSH ONE ×2 (15:37→19:24)
[2017-12-20] MEDS ORDERED: Lidocaine 1%/Epinephrine 1:100,000 Inj 30 ML Vial ONE (16:02)
[2017-12-20] MEDS: Levofloxacin 500 mg Premix Inj 500 MG/100 ML PIGGYBACK IV.SIG ONE ×2 (17:25→22:12)
[2017-12-20] MEDS ORDERED: fentaNYL Citrate Inj 100 MCG/2 ML Ampul ONE (19:46)
[2017-12-20] MEDS ORDERED: LORazepam 0.5 MG Tablet PO PRN (20:17)
[2017-12-20] MEDS ORDERED: HYDROmorphone PF Inj 1 MG/ML Ampul IV.PUSH PRN (20:17)
[2017-12-20] MEDS ORDERED: Morphine Inj 4 MG/ML Vial ONE (20:27)
[2017-12-20] MEDS ORDERED: *Meperidine Inj 25 MG/ML Vial PERIprocedural Use ONLY ONE (20:54)
[2017-12-20] MEDS: KCL 20 mEq/D5W/NaCl 0.45% Inj 1,000 ML IV.CONT SCH (20:55)
[2017-12-20] MEDS ORDERED: *morphine SULFATE 4 MG/ML PERIprocedure ONLY ONE (21:28)
[2017-12-20] MEDS: Ketorolac Inj 30 MG/ML (IVP) Vial IV.PUSH SCH (23:07)
--- NOTE | 2017-12-20 23:10 | P.CONCC ---
History of Present Illness Primary Care Provider: UNKNOWN Family Provider: Amada Dorantes Chief Complaint: Pain History of Present Illness: 67-year-old female with past medical history of hypertension and hyperlipidemia has been admitted with severe abdominal pain. The patient states that at 4 AM she woke up to go to the bathroom when she started to experience severe sharp pains in her right lower quadrant. The pain continued to get worse. It was radiating to her right lower back and also down the right side of her groin, accompanying nausea. CT and sonogram show large pelvic mass of the right ovary. Complex in nature without ascites or obvious miliary implants. Uterus unremarkable. Patient was taken today to operating room for exploratory laparotomy, total abdominal hysterectomy and oophorectomy. The procedure was uncomplicated and the patient is admitted to [facility]. Review of Systems All other systems reviewed negative except as stated in HPI PMFSH - History History Provided By: Patient, Family Member - Medical History Medical History: Medical History (Last Updated 12/16/17 @ 07:00 by Jacqui De Jesus RN) Constipation History of revision of total replacement of right hip joint Hypercholesterolemia Hypertension - Surgical History Surgical History: Surgical History (Last Updated 12/16/17 @ 07:00 by Jacqui De Jesus RN) History of cholecystectomy Previous section - Family History Family History: Family History (Last Updated 12/16/17 @ 13:04 by Peng Mancia DO) Other Renal cancer - Tobacco History Second Hand Smoke Exposure: No Smoking Status: Never smoker Tobacco Type: Cigarettes - Alcohol History How Often Do You Have a Drink Containing Alcohol: Never - Substance Use History Substance History: No History of Abuse - Travel History Recent Travel in the [place] Within the Last 8 Weeks: No Recent Travel Out of the Country Within the Last 8 Weeks: No - Immunization History Tetanus Immunization: >5 Years Hx Influenza Vaccine This Season: No Medications and Allergies Active Medications: Active Medications Al Hydroxide/Mg Hydroxide (Milk Of Eneida Liq) 30 ml PO Q12H PRN PRN Reason: Mild Constipation Last Admin: 12/19/17 16:35 Dose: 30 ml Albuterol (Duoneb Neb (Prn)) 1 ampul NEB Q4HR NEB PRN PRN Reason: SHORTNESS OF BREATH/WHEEZING Alprazolam (Xanax) 0.5 mg PO Q6H PRN PRN Reason: ANXIETY Last Admin: 12/20/17 12:10 Dose: 0.5 mg Amlodipine Besylate (Norvasc) 10 mg PO DAILY [facility] Last Admin: 12/20/17 09:18 Dose: 10 mg Azithromycin (Zithromax) 500 mg PO Q24H [facility] Last Admin: 12/20/17 09:20 Dose: 500 mg Bisacodyl (Dulcolax Supp) 10 mg RECTAL DAILY PRN PRN Reason: SEVERE CONSITIPATION Chlorhexidine Gluconate (Chlorhexidine 2% Cloth) 3 pack [employer] ERGONOMIST [facility] Stop: 12/23/17 05:16 Diphenhydramine HCl (Benadryl) 25 mg PO Q6H PRN PRN Reason: ITCHING Hydromorphone HCl (Dilaudid Pf Inj) 1 mg IV.PUSH Q4H PRN PRN Reason: BREAKTHROUGH PAIN Last Admin: 12/17/17 09:31 Dose: 1 mg Hydromorphone HCl (Dilaudid Pf Inj) 1 mg IV.PUSH Q4H PRN PRN Reason: IV MED FOR PAIN SCALE 6 TO 10 Sodium Chloride (Ns Inj) 1,000 mls @ 100 mls/hr IV.CONT .Q10H [facility] Last Infusion: 12/20/17 22:13 Dose: Infused Cefazolin Sodium 2,000 mg/ (Sodium Chloride) 100 mls @ 200 mls/hr IV.SIG [employer] ERGONOMIST [facility] Stop: 12/22/17 11:40 Lactated Ringer's (Lr 1000 Ml Inj) 1,000 mls @ 30 mls/hr IV.SIG .Q24H [facility] Stop: 12/23/17 05:16 Last Admin: 12/20/17 22:10 Dose: Not Given Sodium Chloride (Ns Inj) 500 mls @ 30 mls/hr IV.SIG .Q10H [facility] Stop: 12/23/17 05:16 Aztreonam 2 gm/ Sodium (Chloride) 100 mls @ 200 mls/hr IV.SIG Q8H [facility] Last Admin: 12/20/17 23:06 Dose: 200 mls/hr Potassium Chloride/Dextrose/Sod Cl (D5w/1/2ns + Kcl 20 Meq Inj) 1,000 mls @ 125 mls/hr IV.CONT .Q8H [facility] Last Admin: 12/20/17 20:55 Dose: 125 mls/hr Ketorolac Tromethamine (Toradol Inj) 15 mg IV.PUSH Q6HR [facility] Stop: 12/23/17 18:01 Last Admin: 12/20/17 23:07 Dose: 15 mg Lactulose (Lactulose Liq) 30 ml PO DAILY PRN PRN Reason: SEVERE CONSITIPATION Last Admin: 12/19/17 14:26 Dose: 30 ml Lorazepam (Ativan) 0.25 mg PO Q8H PRN PRN Reason: ANXIETY Metoprolol Tartrate (Lopressor) 25 mg PO [employer] [facility] Stop: 12/23/17 05:16 Miscellaneous Information ([facility] Nursing Information) 1 each OTHER UNSCH PRN PRN Reason: SEE LABEL COMMENTS Stop: 12/21/17 20:40 Ondansetron HCl (Zofran Inj) 4 mg IV.PUSH Q6H PRN PRN Reason: NAUSEA OR VOMITING Ondansetron HCl (Zofran Inj) 4 mg IV.PUSH Q6H PRN PRN Reason: NAUSEA OR VOMITING Oxycodone HCl (Roxicodone) 10 mg PO Q4H PRN PRN Reason: pain 7-10 Last Admin: 12/20/17 09:19 Dose: 10 mg Oxycodone HCl (Roxicodone) 5 mg PO Q4H PRN PRN Reason: pain 3-6 Oxycodone/Acetaminophen (Percocet 5/325 Mg) 1 tab PO Q4H PRN PRN Reason: PAIN SCALE 1 TO 5 Oxycodone/Acetaminophen (Percocet 5/325 Mg) 2 tab PO Q4H PRN PRN Reason: PAIN SCALE 6 TO 10 Povidone Iodine (Betadine 5% Antisepsis Kit) 1 applicatio EACH [employer]IST [facility] Stop: 12/23/17 05:16 Senna/Docusate Sodium (Juju-Colace) 1 tab PO BID [facility] Last Admin: 12/20/17 22:13 Dose: Not Given Sennosides (Senokot) 17.2 mg PO Q12H PRN PRN Reason: Moderate Constipation Sodium Chloride (Ns Flush) 2 ml IV.FLUSH PRN PRN PRN Reason: FLUSH AFTER USING IV ACCESS Sodium Chloride (Ns Flush) 2 ml IV.FLUSH BID [facility] Last Admin: 12/20/17 22:13 Dose: Not Given Temazepam (Restoril) 15 mg PO HS PRN PRN Reason: INSOMNIA Allergies Allergy/AdvReac Type Severity Reaction Status Date / Time amoxicillin [From Augmentin] Allergy Rash, Verified 12/16/17 07:05 Generalized clavulanic acid Allergy Rash, Verified 12/16/17 07:05 [From Augmentin] Generalized Home Medications Medication Instructions Recorded Confirmed Type amlodipine 10 mg PO DAILY 12/16/17 12/16/17 History cholecalciferol (vitamin D3) 1,000 unit PO DAILY 12/16/17 12/16/17 History [Vitamin D3] multivitamin 1 tab PO DAILY 12/16/17 12/16/17 History Physical Exam Vital signs: Vital Signs 12/20/17 00:00 12/20/17 08:00 12/20/17 12:00 Temperature 99.2 F 98.3 F 98.2 F Pulse Rate 79 103 H 88 Respiratory Rate 16 16 16 Blood Pressure 140/66 158/68 H 143/62 H Pulse Oximetry 91 L 93 L 93 L 12/20/17 14:35 12/20/17 20:15 12/20/17 20:30 Temperature 98.4 F Pulse Rate 74 76 Respiratory Rate 14 16 Blood Pressure 117/75 106/54 L Pulse Oximetry 91 L 94 L 92 L 12/20/17 20:45 12/20/17 21:00 12/20/17 21:15 Temperature Pulse Rate 82 83 84 Respiratory Rate 17 20 22 Blood Pressure 93/61 L 100/59 L 107/52 L Pulse Oximetry 98 97 98 12/20/17 21:30 12/20/17 21:35 12/20/17 23:04 Temperature 97.8 F Pulse Rate 84 Respiratory Rate 20 Blood Pressure 114/59 L Pulse Oximetry 94 L 94 L 94 L Intake & Output 12/20/17 12/20/17 12/21/17 06:59 18:59 06:59 Intake Total 1000 / 1000 100 / 100 5000 / 5000 Output Total 1000 / 1000 Balance 1000 / 1000 100 / 100 4000 / 4000 Weight 102 kg Intake: IV 1000 / 1000 100 / 100 1200 / 1200 NS Inj 1,000 ML @ 100 mls/hr IV 1000 / 1000 1000 / 1000 .CONT .Q10H [facility] Rx#:[id number] Azactam Inj 2 GM In NS Inj 100 100 / 100 ML @ 200 mls/hr IV.SIG Q8H [facility] Rx#:[id number] Levaquin 500 mg Premix Inj 500 100 / 100 mg In 100 ml @ 0 mls/hr IV.SIG .STK-MED ONE Rx#:[id number] Flagyl 500 MG Inj 100 ML @ 0 100 / 100 mls/hr IV.SIG .STK-MED ONE Rx#: [id number] Oral 0 / 0 Anesthesia Amount 3000 / 3000 Intake (Blood Product) Amt 400 / 400 Rbc As-3 Leukoreduced Unit 400 / 400 [id number] Autotransfusion Amount 400 / 400 Output: Urine 50 / 50 Estimated Blood Loss 750 / 750 Urine Amount (Catheter) 200 / 200 Indwelling Urethral Catheter 200 / 200 Other: # Voids 3 - Constitutional mild distress - Routine HEENT Exam Head: Present: normocephalic, atraumatic Eye: Present: PERRL ENT: Present: mucous membranes moist - Routine Neck Exam Present: supple, full ROM. Absent: JVD, carotid bruit - Routine Respiratory Exam Absent: accessory muscle use, rhonchi, stridor, wheezes - Routine Cardiovascular Exam Present: RRR, S1, S2 - Routine Abdominal Exam Present: soft. Absent: tenderness, rebound - Routine Extremities Exam Absent: cyanosis, clubbing, edema - Routine Skin Exam Present: intact. Absent: cyanosis, erythema - Routine Neurological Exam Present: alert, oriented X3 - Detailed Neurological Exam: Coma Scale Eye Opening: Spontaneous Verbal Response: Oriented Motor Response: Obey commands Sahil Coma Scale Total: 15 - Routine Psychiatric Exam Present: normal affect - Urinary Catheter Management Indwelling Urethral Catheter Cath placed during this visit: no Reason for continuing: Hourly intake/output Assessment and Plan - Assessment and Plan Plan: Adnexal mass -cystic mass arising from the left adnexa concerning for malignancy -mass in the right adrenal gland -CA 125 WNL -Status post exploratory laparotomy and LUCAS and oophorectomy -Further management per [facility] Incidental adrenal mass -follow up as an outpatient HTN -Norvasc -Metoprolol -Clonidine PRN Anemia -Hemodynamically stable -Transfuse if Hb<7 Pneumonia -CXR mild basilar airspace disease -Aztreonam and Azithromycin -Supplemental O2 to maintain sats >92% -DuoNeb PRN -Incentive spirometer Anxiety -Xanax PRN -Ativan as needed DVT GI prophylaxis -Teds SCDs -Pharmacological DVT prophylaxis per surgeon -Pepcid Critical Care: The total critical care time was 35 minutes. Time to perform other separately billable procedures was not included in the critical care time.
[2017-12-21] MEDS: HYDROmorphone PF Inj 2 MG/ML Vial IV.PUSH PRN ×4 (01:30→16:58)
[2017-12-21] MEDS ORDERED: Potassium Chlor 40 mEq Premix 40 MEQ/100 ML PIGGYBACK IV.SIG PRN ×2 (01:38)
[2017-12-21] MEDS ORDERED: Potassium Phosphate Inj 30 MMOL in Sodium Chlor 0.9% Inj 250 ML IV.SIG PRN (01:38)
[2017-12-21] MEDS ORDERED: Potassium Chlor 20 mEq Premix 20 MEQ/100 ML PIGGYBACK IV.SIG PRN ×2 (01:38)
[2017-12-21] MEDS ORDERED: Magnesium Sulfate Inj 2 GM in Sodium Chlor 0.9% Inj 96 ML IV.SIG PRN (01:38)
[2017-12-21] MEDS ORDERED: Magnesium Sulfate Inj 4 GM in Sodium Chlor 0.9% Inj 92 ML IV.SIG PRN (01:38)
[2017-12-21] MEDS ORDERED: Sodium Phosphate Inj 30 MMOL in Sodium Chlor 0.9% Inj 250 ML IV.SIG PRN (01:38)
[2017-12-21] MEDS ORDERED: Potassium Phosphate 500 MG Soluble Tablet PO PRN ×2 (01:38)
[2017-12-21] MEDS ORDERED: Potassium Chloride 25 MEQ Effervescent Tablet PO PRN (01:38)
[2017-12-21] MEDS ORDERED: Magnesium Oxide 400 MG Tablet PO PRN (01:38)
[2017-12-21 05:03] LABS: Baso % (Auto) 0.1 % (0.0-2.0); Hematocrit 28.3 % (35.0-46.0); Hemoglobin 9.7 gm/dL (11.6-15.3); Lymph # (Auto) 0.3 th/mm3 (1.0-4.8); Lymph % (Auto) 3.2 % (9.0-44.0); Mean Corpuscular HGB Conc 34.4 % (32.0-36.0); Mean Corpuscular Volume 87.2 fL (80.0-100.0); Mono # (Auto) 0.3 th/mm3 (0.0-0.9); Neut % (Auto) 93.7 % (16.0-70.0); Platelet Count 207 th/mm3 (150-450); Red Blood Count 3.25 mil/mm3 (4.00-5.30); Red Cell Distribution Width 15.1 % (11.6-17.2); White Blood Count 9.6 th/mm3 (4.0-11.0)
[2017-12-21] MEDS: KCL 20 mEq/D5W/NaCl 0.45% Inj 1,000 ML IV.CONT SCH ×2 (05:21→16:42)
[2017-12-21] MEDS: Ketorolac Inj 30 MG/ML (IVP) Vial IV.PUSH SCH ×3 (05:22→23:12)
[2017-12-21 05:23] LABS: Alanine Aminotransferase 128 U/L (10-53); Albumin 2.3 g/dL (3.4-5.0); Anion Gap 8 meq/L (5-15); Aspartate Aminotransferase 26 U/L (15-37); Blood Urea Nitrogen 8 mg/dL (7-18); Calcium 8.3 mg/dL (8.5-10.1); Carbon Dioxide 27.3 meq/L (21.0-32.0); Chloride 106 meq/L (98-107); Glomerular Filtration Rate 88 mL/min (>89); Glucose,Random 176 mg/dL (74-106); Potassium 3.5 meq/L (3.5-5.1); Sodium 141 meq/L (136-145)
[2017-12-21 05:25] LABS: Alkaline Phosphatase 147 U/L (45-117)
[2017-12-21] MEDS: Sod Chloride 0.9% Inj 1,000 ML IV.CONT SCH ×2 (05:57→16:43)
[2017-12-21] MEDS: Aztreonam Inj 2 GM in Sodium Chloride 0.9% Inj 100 ML IV.SIG SCH ×3 (06:00→22:28)
--- NOTE | 2017-12-21 07:11 | P.PN ---
Subjective Interval history: c/o pain, fatigue c/w surgery/anesthesia no cp, sob able to get some sleep otherwise no new c/o Physical Exam Vital signs: Vital Signs 12/20/17 08:00 12/20/17 12:00 12/20/17 14:35 Temperature 98.3 F 98.2 F Pulse Rate 103 H 88 Respiratory Rate 16 16 Blood Pressure 158/68 H 143/62 H Pulse Oximetry 93 L 93 L 91 L 12/20/17 20:15 12/20/17 20:30 12/20/17 20:45 Temperature 98.4 F Pulse Rate 74 76 82 Respiratory Rate 14 16 17 Blood Pressure 117/75 106/54 L 93/61 L Pulse Oximetry 94 L 92 L 98 12/20/17 21:00 12/20/17 21:15 12/20/17 21:30 Temperature 97.8 F Pulse Rate 83 84 84 Respiratory Rate 20 22 20 Blood Pressure 100/59 L 107/52 L 114/59 L Pulse Oximetry 97 98 94 L 12/20/17 21:35 12/20/17 23:04 12/21/17 00:00 Temperature 97.7 F Pulse Rate 74 Respiratory Rate 14 Blood Pressure 127/64 Pulse Oximetry 94 L 94 L 95 12/21/17 02:00 12/21/17 04:00 12/21/17 06:00 Temperature 98.1 F Pulse Rate 62 68 68 Respiratory Rate 16 Blood Pressure 131/65 Pulse Oximetry 96 Intake & Output 12/20/17 12/21/17 12/21/17 18:59 06:59 18:59 Intake Total 100 / 100 6340 / 6340 Output Total 3900 / 3900 Balance 100 / 100 2440 / 2440 Weight 109.5 kg Intake: IV 100 / 100 2300 / 2300 D5W/1/2NS + KCL 20 mEq Inj 1, 1000 / 1000 000 ML @ 125 mls/hr IV.CONT . Q8H [facility] Rx#:[id number] NS Inj 1,000 ML @ 100 mls/hr IV 1000 / 1000 .CONT .Q10H [facility] Rx#:[id number] Azactam Inj 2 GM In NS Inj 100 100 / 100 100 / 100 ML @ 200 mls/hr IV.SIG Q8H [facility] Rx#:[id number] Levaquin 500 mg Premix Inj 500 100 / 100 mg In 100 ml @ 0 mls/hr IV.SIG .STK-MED ONE Rx#:[id number] Flagyl 500 MG Inj 100 ML @ 0 100 / 100 mls/hr IV.SIG .STK-[facility] Rx#: [id number] Oral 240 / 240 Anesthesia Amount 3000 / 3000 Intake (Blood Product) Amt 400 / 400 Rbc As-3 Leukoreduced Unit 400 / 400 [id number] Autotransfusion Amount 400 / 400 Output: Urine 50 / 50 Estimated Blood Loss 750 / 750 Urine Amount (Catheter) 3100 / 3100 Indwelling Urethral Catheter 3100 / 3100 - Constitutional no acute distress - Routine HEENT Exam Eye: Present: PERRL - Routine Respiratory Exam Present: CTA bilaterally (basilar rales) - Routine Cardiovascular Exam Present: RRR - Routine Abdominal Exam Present: soft, wound - Routine Neurological Exam Present: alert, oriented X3 - Routine Psychiatric Exam Present: normal affect - Urinary Catheter Management Indwelling Urethral Catheter Cath placed during this visit: no Reason for continuing: Hourly intake/output Results - Labs CBC & Chem 7: 12/21/17 03:34 12/21/17 03:34 Laboratory Results - last 24 hr 12/20/17 12/20/17 12/20/17 03:34 05:23 05:23 WBC RBC Hgb Hct MCV MCH MCHC RDW Plt Count MPV Neut % (Auto) Lymph % (Auto) Rush % (Auto) Eos % (Auto) Baso % (Auto) Neut # (Auto) Lymph # (Auto) Rush # (Auto) Eos # (Auto) Baso # (Auto) WBC Differential Differential Comment Smear Path Review Retic Count 1.2 Absolute Retic 31.2 Fibrinogen 665 H Sodium Potassium Chloride Carbon Dioxide Anion Gap BUN Creatinine Estimated GFR Random Glucose Calcium Total Bilirubin 1.0 Direct Bilirubin 0.4 H Indirect Bilirubin 0.6 AST 46 H ALT 187 H Alkaline Phosphatase 150 H Total Protein 6.0 L Albumin 2.6 L Vitamin B12 825 Folate 16.6 Nasal Screen MRSA (PCR) MTS Gel Crossmatch Bld Prod Order Comment 12/20/17 12/20/17 12/21/17 12:59 21:54 03:34 WBC RBC Hgb Hct MCV MCH MCHC RDW Plt Count MPV Neut % (Auto) Lymph % (Auto) Rush % (Auto) Eos % (Auto) Baso % (Auto) Neut # (Auto) Lymph # (Auto) Rush # (Auto) Eos # (Auto) Baso # (Auto) WBC Differential Differential Comment Smear Path Review Retic Count Absolute Retic Fibrinogen Sodium 141 Potassium 3.5 Chloride 106 Carbon Dioxide 27.3 Anion Gap 8 BUN 8 Creatinine 0.67 Estimated GFR 88 L Random Glucose 176 H Calcium 8.3 L Total Bilirubin 0.7 Direct Bilirubin Indirect Bilirubin AST 26 ALT 128 H Alkaline Phosphatase 147 H Total Protein 6.0 L Albumin 2.3 L Vitamin B12 Folate Nasal Screen MRSA (PCR) Not detected MTS Gel Crossmatch See Detail Bld Prod Order Comment 12/21/17 03:34 WBC 9.6 RBC 3.25 L Hgb 9.7 L Hct 28.3 L MCV 87.2 D MCH 30.0 MCHC 34.4 RDW 15.1 Plt Count 207 MPV 9.0 Neut % (Auto) 93.7 H Lymph % (Auto) 3.2 L Rush % (Auto) 3.0 Eos % (Auto) 0.0 Baso % (Auto) 0.1 Neut # (Auto) 9.0 H Lymph # (Auto) 0.3 L Rush # (Auto) 0.3 Eos # (Auto) 0.0 Baso # (Auto) 0.0 WBC Differential . Differential Comment Auto diff final Smear Path Review Retic Count Absolute Retic Fibrinogen Sodium Potassium Chloride Carbon Dioxide Anion Gap BUN Creatinine Estimated GFR Random Glucose Calcium Total Bilirubin Direct Bilirubin Indirect Bilirubin AST ALT Alkaline Phosphatase Total Protein Albumin Vitamin B12 Folate Nasal Screen MRSA (PCR) MTS Gel Crossmatch Bld Prod Order Comment Assessment and Plan - Assessment (1) Pelvic mass in female Code(s): R19.00 - Intra-abdominal and pelvic swelling, mass and lump, unspecified site Status: Acute - Plan POD#1, stable in early post-op period findings, preliminary path reviewed oob with assistance, spirometry limited mobility, may benefit from hospital and home PT adat, remove ruiz when ambulatory
--- NOTE | 2017-12-21 07:43 | ECG ---
Date Performed: 12/19/2017 Time Performed: 21:54:03 PTAGE: 67 years EKG: Sinus rhythm NONSPECIFIC T-WAVE ABNORMALITY BORDERLINE ECG PREVIOUS TRACING : 07/29/2015 09.39 DOCTOR: Carrie Ross Interpretating Date/Time 12/21/2017 07:37:27
--- NOTE | 2017-12-21 08:17 | MP ---
cc: Gerda Magana MD,Sara Qureshi,Mattie Avila,Dong Sharpe,Nando Castellano MD DATE OF OPERATION: 12/20/2017 PREOPERATIVE DIAGNOSIS: 1. Large abdominal pelvic mass. 2. Pain, anemia, febrile. POSTOPERATIVE DIAGNOSIS: 18 cm right ovarian mass with torsion, necrosis and hemorrhage. PROCEDURE: Exploratory laparotomy, resection of large right ovarian mass (right salpingo-oophorectomy), supracervical hysterectomy and left salpingo-oophorectomy, lysis of adhesions. SURGEON: Gerda Magana MD [facility] ADMINISTRATOR: Juanita assistant head cashier. ANESTHESIA: General endotracheal anesthesia. ESTIMATED BLOOD LOSS: 750 mL. IV FLUIDS: 3000 mL. URINE OUTPUT: 200 mL, 1 unit of packed red blood cells. HISTORY: A 67-year-old female recently admitted as an inpatient due to abdominal pain, distention, was febrile early on admission. Exam and imaging showed a large abdominal pelvic mass thought to be of ovarian origin. There was no overt evidence to suggest metastatic disease beyond this mass, as there were no peritoneal implants. At the time of imaging, there was no intraperitoneal fluid, no adenopathy. Tumor markers were essentially normal. During hospitalization, her pain persisted, possibly worsened. Her hemoglobin was trending downward. She had some elevated liver function tests. She has been counseled regarding the recommendations for surgery and is in favor of moving forward with surgical management. FINDINGS: Upon entry into the peritoneal cavity, an estimated 500 mL of blood was present in the peritoneal cavity. There were adhesions of the omentum to the anterior abdominal wall overlying this large mass. The mass was black in coloration consistent with necrosis. The mass was friable at one area with capsular rupture which was the source of bleeding at some point in the process and there was apparent torsion of the gonadal vessels. The mass seemed to be arising from and replacing the right ovary. Frozen section analysis of the mass, once removed, favored it being a benign process. The solid appearing components on CAT scan were consistent with clotted blood within the capsule. On preliminary assessment, there was no overt evidence of malignancy with final pathology pending. The left tube and ovary appeared normal. The uterus, although grossly appeared normal, was quite altered in its consistency due to the diffuse inflammatory change. There were extensive adhesions between the bladder and the anterior uterus, lower uterine segment and cervix and prior to removing the mass, there were adhesions circumferentially around the large mass. At the conclusion of the case, all normal-appearing tissue had been removed as the abnormal appearing tissue was confined to the large necrotic mass with inflammatory changes to adjacent structures, but no neoplastic appearing changes otherwise. At the conclusion of the case, there was good hemostasis. STATEMENT OF COMPLEXITY/MODIFIER: The complexity of this case was increased, not only for the large mass that required resection, but the extensive adhesions that required additional time and effort and lysing adhesions to gain safe entry into the abdominal cavity to isolate the mass, to free the bladder flap along the uterus, to restore normal anatomy and complete surgical objectives. Modifier be applied accordingly. DESCRIPTION OF PROCEDURE: She was taken to the operating room, placed in dorsal supine position after general endotracheal anesthesia was administered. Attempts to move her into lithotomy position, it became apparent the degree of immobility in her lower extremities. Her left knee is almost completely fixed with no more than approximately 30 degrees of passive mobility. The right leg was not as severe, but she is status post hip replacement on the right. It was essentially impossible to safely place her in lithotomy position. Accordingly, she was placed in supine position with a slight bend below her knees with pillows of blankets and padding to properly position her. She was secured to the table, arms out to the sides. I placed a phone call to one of her family members to get a better understanding of her overall mobility. She ambulates with a cane or a walker with some significant limitations and has been told she is in need of a left knee replacement. I explained that we cannot position or properly for consideration of laparoscopic procedure and laparotomy was recommended as we had no consistent safe access to the pelvis and they expressed understanding. She was prepped and draped in a sterile fashion. Garcia catheter was placed. Orogastric tube was in the stomach on suction. Ioban was incorporated into the prep and draping. A midline incision was made through her preexisting midline incision below the umbilicus. This was carried down to the level of the fascia. The fascia was entered. The rectus muscles were in the midline and the peritoneal cavity was entered. A small window to evaluate the anatomy. Lysis of adhesions was carried out to further extend access into the peritoneal cavity and the incision was extended up and around the umbilicus several centimeters to enhance surgical exposure. The omentum was taken down from its adhesions to the mass as the adhesions against the anterior abdominal wall were taken down with sharp dissection. Blunt dissection was used to take down filmy adhesions around the mass. Sharp dissection was used to take down more extensive adhesions. This was carried out circumferentially until adhesions were free. The anatomy was explored. The normal appearing left tube and ovary were identified. The uterus was identified and clamps were placed on the uteroovarian ligaments and the mass was clearly arising from and replacing the right ovary. The mass was able to be delivered now through the abdominal wall opening which helped facilitate exposure. The right round ligament was doubly suture ligated. The anterior and posterior leafs of the broad ligament were opened. Profound edematous tissue was noted throughout. Retroperitoneal dissection allowed identification of the right ureter, which showed some hydronephrosis. The intervening peritoneum was opened. The right infundibulopelvic ligament was isolated to the level of the pelvic brim, torsion and necrosis within the vessels distally were noted and the vessels were isolated to the level where they appeared normal proximally where they were doubly clamped, cut, and doubly suture ligated. The right uteroovarian ligament was doubly clamped and cut, thereby removing the large mass, which was sent for frozen section analysis. Lap pads and Bookwalter retractor were assembled to assist in surgical exposure. The left round ligament was doubly suture ligated, transected. The anterior and posterior leafs of the broad ligament were opened. The left ureter was identified. The left infundibulopelvic ligament was isolated, doubly clamped, cut, and suture ligated. As the uterus appeared normal due to diffuse inflammatory changes, a clamp essentially tore through the tissue at the right cornu. It was felt that the uterus needed to be removed, at least this abnormal portion, so extensive dissection was required to take down the bladder flap from the uterus, lower uterine segment and cervix, and attachments were isolated, used with bipolar cautery and sharp dissection in a stepwise fashion until this bladder flap could be reduced. The uterine vessels were skeletonized. Posterior peritoneum was opened. There was some fairly significant bleeding from the uterine vessels until they could be isolated, clamped, cut, and suture ligated. The cardinal and paracervical ligaments were isolated, clamped, cut, and suture ligated. Inspection and palpation revealed a very long cervix with additional adhesions distally. In keeping with the preoperative discussion and taking into consideration she has not had a Pap smear or gynecologic evaluation in approximately 30 years and she was in favor of more rapid recovery, a decision was made in favor of a supracervical hysterectomy such that approximately 1-2 cm of residual cervix were left in situ. The uterus and proximal cervix were removed by transecting across the cervix. The specimen was removed, which included uterus, proximal cervix, left tube and ovary and the residual cervix was oversewn with interrupted [id number] 0 Vicryl sutures. Small bleeders were rendered hemostatic with bipolar cautery or interrupted 3-0 Vicryl sutures. The pelvis was thoroughly irrigated. Sites were satisfactorily hemostatic. Frozen section came back showing no overt evidence of malignancy. To assist in continued hemostasis, Surgicel SNoW was placed across the vaginal cuff across the residual cervix, the bladder flap and lateral pelvic sidewall. The Bookwalter retractor was disassembled. The lap pads were removed. Visual and manual inspection confirmed there were no remaining foreign objects in the peritoneal cavity and preliminary counts were correct. Exploration of the abdominal anatomy showed the liver diaphragm edges were smooth. There were no peritoneal implants. The large and small bowel appeared normal, without implants. There was no adenopathy. She had fairly significant obstipation noted in the colon extending all the way along the descending colon and rectosigmoid without evidence of obstruction. It was felt that all reasonable surgical objectives had been completed, so attention was directed toward closing the abdominal wall. The abdominal wall was closed with a running modified Smead-Tavarez in a continuous fashion starting at the apices of the incision, meeting in the midpoint where the suture was tied. Subcutaneous tissue was irrigated. Thi's fascia reapproximated with 2-0 Vicryl sutures and the skin edges were closed with michele. A dry sterile dressing was placed over the incision. I left the operating room to precede her to the postanesthesia care unit. She was pending reversal of anesthesia as I went to speak to family members. Due to the intraperitoneal hemorrhage, her findings, the intraoperative blood loss, which was a bit difficult to estimate due to the presence of blood at the start of the case and her need for intraoperative transfusion with preexisting anemia, an ICS bed was requested and a consultation was placed with the yolk spray drier (Dr. Avila). MD GEORGE Gan/MARY , 07:29 AM , 07:53 AM
[2017-12-21] MEDS: Senna/Docusate Sodium 8.6/50 MG Tablet PO SCH ×2 (09:41→21:11)
[2017-12-21] MEDS: amLODIPine 10 MG Tablet PO SCH (09:41)
[2017-12-21] MEDS: Azithromycin 250 MG Tablet PO SCH (09:41)
--- NOTE | 2017-12-21 10:20 | P.PN ---
Subjective Interval history: Pt seen and examined this morning. AFVSS. No acute events overnight. Daughter and RN at the bedside. Pt POD1 s/p ex-lap with resection of R ovarian mass, supracervical hysterectomy with bilateral SPO, and lysis of adhesions. Pt reports some abdominal pain but she attributes this to her surgery and states the prior abdominal pain she was having is gone. She denies N/V. Hasn't had anything to eat yet. Passing gas. No BM. Denies CP or SOB. Physical Exam Vital signs: Vital Signs 12/20/17 12:00 12/20/17 14:35 12/20/17 20:15 Temperature 98.2 F 98.4 F Pulse Rate 88 74 Respiratory Rate 16 14 Blood Pressure 143/62 H 117/75 Pulse Oximetry 93 L 91 L 94 L 12/20/17 20:30 12/20/17 20:45 12/20/17 21:00 Temperature Pulse Rate 76 82 83 Respiratory Rate 16 17 20 Blood Pressure 106/54 L 93/61 L 100/59 L Pulse Oximetry 92 L 98 97 12/20/17 21:15 12/20/17 21:30 12/20/17 21:35 Temperature 97.8 F Pulse Rate 84 84 Respiratory Rate 22 20 Blood Pressure 107/52 L 114/59 L Pulse Oximetry 98 94 L 94 L 12/20/17 23:04 12/21/17 00:00 12/21/17 02:00 Temperature 97.7 F Pulse Rate 74 62 Respiratory Rate 14 Blood Pressure 127/64 Pulse Oximetry 94 L 95 12/21/17 04:00 12/21/17 06:00 12/21/17 08:20 Temperature 98.1 F Pulse Rate 68 68 Respiratory Rate 16 Blood Pressure 131/65 Pulse Oximetry 96 96 Intake & Output 12/20/17 12/21/17 12/21/17 18:59 06:59 18:59 Intake Total 100 / 100 6340 / 6340 100 / 100 Output Total 3900 / 3900 Balance 100 / 100 2440 / 2440 100 / 100 Weight 109.5 kg Intake: IV 100 / 100 2300 / 2300 100 / 100 D5W/1/2NS + KCL 20 mEq Inj 1, 1000 / 1000 000 ML @ 125 mls/hr IV.CONT . Q8H [facility] Rx#:[id number] NS Inj 1,000 ML @ 100 mls/hr IV 1000 / 1000 .CONT .Q10H [facility] Rx#:[id number] Azactam Inj 2 GM In NS Inj 100 100 / 100 100 / 100 100 / 100 ML @ 200 mls/hr IV.SIG Q8H [facility] Rx#:[id number] Levaquin 500 mg Premix Inj 500 100 / 100 mg In 100 ml @ 0 mls/hr IV.SIG .STK-MED ONE Rx#:[id number] Flagyl 500 MG Inj 100 ML @ 0 100 / 100 mls/hr IV.SIG .STK-[facility] Rx#: [id number] Oral 240 / 240 Anesthesia Amount 3000 / 3000 Intake (Blood Product) Amt 400 / 400 Rbc As-3 Leukoreduced Unit 400 / 400 [id number] Autotransfusion Amount 400 / 400 Output: Urine 50 / 50 Estimated Blood Loss 750 / 750 Urine Amount (Catheter) 3100 / 3100 Indwelling Urethral Catheter 3100 / 3100 Narrative: GENERAL: WN, WD pleasant female laying in bed in [facility]. SKIN: Warm and dry. No jaundice. HEENT: AT/NC. Pupils equal and round. No scleral icterus. MMM. HEART: RRR with 1/6 GREY. LUNGS: Anterior breath sounds CTAB. ABDOMEN: +BS, dressing over ex-lap incision in place. EXTREMITIES: No LE edema. 2+ pedal pulses. NEURO: Awake and alert. Nonfocal. PSYCH: Appropriate mood and affect. - Urinary Catheter Management Indwelling Urethral Catheter Cath placed during this visit: no Reason for continuing: Hourly intake/output Results - Labs CBC & Chem 7: 12/21/17 03:34 12/21/17 03:34 Laboratory Results - last 24 hr 12/20/17 12/20/17 12/20/17 03:34 05:23 05:23 WBC RBC Hgb Hct MCV MCH MCHC RDW Plt Count MPV Neut % (Auto) Lymph % (Auto) [place] % (Auto) Eos % (Auto) Baso % (Auto) Neut # (Auto) Lymph # (Auto) [place] # (Auto) Eos # (Auto) Baso # (Auto) WBC Differential Differential Comment Smear Path Review Retic Count 1.2 Absolute Retic 31.2 Fibrinogen 665 H Sodium Potassium Chloride Carbon Dioxide Anion Gap BUN Creatinine Estimated GFR Random Glucose Calcium Total Bilirubin 1.0 Direct Bilirubin 0.4 H Indirect Bilirubin 0.6 AST 46 H ALT 187 H Alkaline Phosphatase 150 H Total Protein 6.0 L Albumin 2.6 L Vitamin B12 825 Folate 16.6 Nasal Screen MRSA (PCR) MTS Gel Crossmatch Bld Prod Order Comment 12/20/17 12/20/17 12/21/17 12:59 21:54 03:34 WBC RBC Hgb Hct MCV MCH MCHC RDW Plt Count MPV Neut % (Auto) Lymph % (Auto) [place] % (Auto) Eos % (Auto) Baso % (Auto) Neut # (Auto) Lymph # (Auto) [place] # (Auto) Eos # (Auto) Baso # (Auto) WBC Differential Differential Comment Smear Path Review Retic Count Absolute Retic Fibrinogen Sodium 141 Potassium 3.5 Chloride 106 Carbon Dioxide 27.3 Anion Gap 8 BUN 8 Creatinine 0.67 Estimated GFR 88 L Random Glucose 176 H Calcium 8.3 L Total Bilirubin 0.7 Direct Bilirubin Indirect Bilirubin AST 26 ALT 128 H Alkaline Phosphatase 147 H Total Protein 6.0 L Albumin 2.3 L Vitamin B12 Folate Nasal Screen MRSA (PCR) Not detected MTS Gel Crossmatch See Detail Bld Prod Order Comment 12/21/17 03:34 WBC 9.6 RBC 3.25 L Hgb 9.7 L Hct 28.3 L MCV 87.2 D MCH 30.0 MCHC 34.4 RDW 15.1 Plt Count 207 MPV 9.0 Neut % (Auto) 93.7 H Lymph % (Auto) 3.2 L [place] % (Auto) 3.0 Eos % (Auto) 0.0 Baso % (Auto) 0.1 Neut # (Auto) 9.0 H Lymph # (Auto) 0.3 L [place] # (Auto) 0.3 Eos # (Auto) 0.0 Baso # (Auto) 0.0 WBC Differential . Differential Comment Auto diff final Smear Path Review Retic Count Absolute Retic Fibrinogen Sodium Potassium Chloride Carbon Dioxide Anion Gap BUN Creatinine Estimated GFR Random Glucose Calcium Total Bilirubin Direct Bilirubin Indirect Bilirubin AST ALT Alkaline Phosphatase Total Protein Albumin Vitamin B12 Folate Nasal Screen MRSA (PCR) MTS Gel Crossmatch Bld Prod Order Comment Assessment and Plan - Assessment (1) Transaminitis Code(s): R74.0 - Nonspecific elevation of levels of transaminase and lactic acid dehydrogenase [LDH] Status: Acute (2) Adnexal mass Code(s): N94.9 - Unspecified condition associated with female genital organs and menstrual cycle Status: Acute (3) Pneumonia Code(s): J18.9 - Pneumonia, unspecified organism Status: Acute - Plan 67 year old female with history of HTN and HLD admitted on 12/16 for severe abdominal pain with CT showing 16.7 x 13.4 x 16.9 cm cystic mass arising from the left adnexa. 1. R adnexal mass - CT showing 16.7 x 13.4 x 16.9 cm cystic mass arising from the left adnexa concerning for malignancy. There is also a 2.9 x 3.5 cm mass in the right adrenal gland, may be benign however it is somewhat more concerning in light of the mass within the pelvis - CA 125 WNL - OVERCOILER consulted, d/w Dr. Qureshi - POD1 s/p ex-lap with resection of R ovarian mass, supracervical hysterectomy with B/L SPO, and lysis of adhesions with Dr. Magana - Pathology pending - Pain control - Ambulate - ADAT - Incentive spirometer 2. Transaminitis - resolving - Unclear etiology, ?shock liver but patient never became hypotensive or septic - AST 17 > 342 > 212 > 104 > 47 > 46 - ALT 22 > 216 > 376 > 256 > 176 > 128 - Alk phosphatase t bili were also mildly up but now decreasing - Hepatitis profile negative - GTT elevated suggestive of liver origin - CT A/P on admission with normal appearance of liver - Liver Doppler U/S with no portal vein thrombosis and normal appearance of liver. GB is surgically absent - Acetaminophen level WNL - Avoid hepatotoxic agents - IV fluids 3. HCAP - CXR 12/19 showing mild basilar airspace disease - Since patient developed the fever with CXR findings of possible PNA in the hospital, will treat for HCAP - Allergic to PCN so will treat with Aztreonam and Azithromycin - Supplemental O2 to maintain sats >92% - DuoNeb PRN - Incentive spirometer - Tylenol PRN fever - Encourage OOB 4. HTN - Well-controlled - Continue amlodipine - Clonidine PRN 5 HLD - D/C statin in light of elevated LFTs 6. Incidental adrenal mass - Visualized on both CT and ultrasound - Discussed findings with patient - She is going to follow this up as an outpatient 7. Anxiety - Xanax PRN 8. Anemia - Iron studies with mixed picture, likely combination of iron deficiency and anemia of chronic disease - B12 and folate WNL - LDH, haptoglobin, and retic count normal - Peripheral smear with findings of severe normocytic anemia and reactive leukocytes - Transfused 1 unit in the OR - Hemoglobin improved this AM - Continue to monitor - Hemodynamically stable - Transfuse if Hb<7 or symptomatic DVT prophylaxis: SCDs, chemical anticoagulation when appropriate per surgery Code Status: Full Discussed Condition With: Patient and her daughter Discharge Planning: When cleared by specialists on board
[2017-12-22] MEDS: Aztreonam Inj 2 GM in Sodium Chloride 0.9% Inj 100 ML IV.SIG SCH ×3 (06:09→22:38)
[2017-12-22] MEDS: Ketorolac Inj 30 MG/ML (IVP) Vial IV.PUSH SCH ×5 (06:10→23:31)
[2017-12-22] MEDS: amLODIPine 10 MG Tablet PO SCH (08:22)
[2017-12-22] MEDS: Azithromycin 250 MG Tablet PO SCH (08:22)
[2017-12-22] MEDS: Senna/Docusate Sodium 8.6/50 MG Tablet PO SCH ×2 (08:22→21:10)
--- NOTE | 2017-12-22 08:40 | P.PNONC ---
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 with daughter at bedside no complaints, pain controlled has been OOB to bathroom and chair denies any nausea or vomiting Objective Vital Signs/Intake & Output: Vital Signs 12/21/17 08:20 12/21/17 10:00 12/21/17 12:00 Temperature 98.2 F Pulse Rate 76 54 L Respiratory Rate 10 L Blood Pressure 110/58 L Pulse Oximetry 96 93 L 12/21/17 14:00 12/21/17 16:00 12/21/17 18:00 Temperature 98.1 F Pulse Rate 70 68 64 Respiratory Rate 25 H Blood Pressure 108/67 Pulse Oximetry 96 12/21/17 19:20 12/21/17 20:00 12/21/17 23:13 Temperature 98 F Pulse Rate 63 Respiratory Rate 19 20 Blood Pressure 114/79 Pulse Oximetry 99 95 12/22/17 00:00 12/22/17 04:00 12/22/17 06:00 Temperature 98.3 F 98 F Pulse Rate 60 48 L 52 L Respiratory Rate 20 18 Blood Pressure 104/57 L 109/56 L Pulse Oximetry 93 L 92 L 12/22/17 07:49 Temperature Pulse Rate Respiratory Rate Blood Pressure Pulse Oximetry 92 L Intake & Output 12/21/17 12/22/17 12/22/17 18:59 06:59 18:59 Intake Total 2400 / 2400 3001 / 3001 100 / 100 Output Total 550 / 550 750 / 750 Balance 1850 / 1850 2251 / 2251 100 / 100 Weight 108.5 kg Intake: IV 1200 / 1200 100 / 100 100 / 100 D5W/1/2NS + KCL 20 mEq Inj 1, 1000 / 1000 000 ML @ 125 mls/hr IV.CONT . Q8H ALFRED Rx#:[id number] Azactam Inj 2 GM In NS Inj 100 200 / 200 100 / 100 100 / 100 ML @ 200 mls/hr IV.SIG Q8H ALFRED Rx#:[id number] Oral 1200 / 1200 600 / 600 Other 2301 / 2301 Output: Estimated Blood Loss 750 / 750 Urine Amount (Catheter) 550 / 550 Indwelling Urethral Catheter 550 / 550 Other: # Voids 1 4 Date of Last Bowel Movement 12/15/17 Result Diagrams: 12/21/17 03:34 12/21/17 03:34 Medications: Active Medications Generic Name Dose Route Start Last Admin Trade Name Freq PRN Reason Stop Dose Admin Al Hydroxide/Mg Hydroxide 30 ml 12/19/17 11:15 12/19/17 16:35 Milk Of Magnesia Liq PO 30 ml Q12H PRN Administration Mild Constipation Alprazolam 0.5 mg 12/19/17 14:22 12/20/17 12:10 Xanax PO 0.5 mg Q6H PRN Administration ANXIETY Amlodipine Besylate 10 mg 12/16/17 15:00 12/21/17 09:41 Norvasc PO 10 mg DAILY ALFRED Administration Azithromycin 500 mg 12/20/17 08:00 12/21/17 09:41 Zithromax PO 500 mg Q24H ALFRED Administration Sodium Chloride 1,000 mls @ 100 mls/hr 12/16/17 15:00 12/21/17 16:43 Ns Inj IV.CONT Not Given .Q10H ALFRED Lactated Ringer's 1,000 mls @ 30 mls/hr 12/20/17 05:30 12/22/17 08:05 Lr 1000 Ml Inj IV.SIG 12/23/17 05:16 Not Given .Q24H ALFRED Aztreonam 2 gm/ Sodium 100 mls @ 200 mls/hr 12/20/17 07:00 12/22/17 08:06 Chloride IV.SIG Infused Q8H ALFRED Infusion Ketorolac Tromethamine 15 mg 12/21/17 00:00 12/22/17 08:05 Toradol Inj IV.PUSH 12/23/17 18:01 15 mg Q6HR ALFRED Administration Lactulose 30 ml 12/19/17 11:15 12/19/17 14:26 Lactulose Liq PO 30 ml DAILY PRN Administration SEVERE CONSITIPATION Oxycodone/Acetaminophen 1 tab 12/21/17 21:15 12/21/17 21:52 Percocet 5/325 Mg PO 1 tab Q4H PRN Administration PAIN 1 TO 6 Senna/Docusate Sodium 1 tab 12/16/17 21:00 12/21/17 21:11 Juju-Colace PO 1 tab BID ALFRED Administration Sodium Chloride 2 ml 12/20/17 21:00 12/22/17 08:07 Ns Flush IV.FLUSH 2 ml BID ALFRED Administration Objective Remarks: GENERAL: Well-nourished, well-developed patient. SKIN: Warm and dry. HEAD: Normocephalic. EYES: No scleral icterus. No injection or drainage. CARDIOVASCULAR: Regular rate and rhythm RESPIRATORY: Breath sounds equal bilaterally. No accessory muscle use. GASTROINTESTINAL: Abdomen soft, non-tender, nondistended. michele are intact EXTREMITIES:teds and scds MUSCULOSKELETAL: Adequate muscle tone. NEUROLOGICAL: No obvious focal deficit. Awake, alert, and oriented x3. PSYCHIATRIC: Appropriate mood and affect; insight and judgment normal. Assessment/Plan (1) Pelvic mass in female Code(s): R19.00 - Intra-abdominal and pelvic swelling, mass and lump, unspecified site Status: Resolved - Plan POD #2 continue pain medication per EMR will advance diet continue IVF OOB to chair and ambulation IS anticipate discharge in next 24-48 hours.
--- NOTE | 2017-12-22 15:24 | P.PNONC ---
Subjective Interval history: Hematology Afebrile Patient complaining of pain and bloating Reports pain medications that she is given makes her sleep Denies any bleeding Objective Vital Signs/Intake & Output: Vital Signs 12/21/17 16:00 12/21/17 18:00 12/21/17 19:20 Temperature 98.1 F Pulse Rate 68 64 Respiratory Rate 25 H Blood Pressure 108/67 Pulse Oximetry 96 99 12/21/17 20:00 12/21/17 23:13 12/22/17 00:00 Temperature 98 F 98.3 F Pulse Rate 63 60 Respiratory Rate 19 20 20 Blood Pressure 114/79 104/57 L Pulse Oximetry 95 93 L 12/22/17 04:00 12/22/17 06:00 12/22/17 07:49 Temperature 98 F Pulse Rate 48 L 52 L Respiratory Rate 18 Blood Pressure 109/56 L Pulse Oximetry 92 L 92 L 12/22/17 08:00 Temperature 97.6 F Pulse Rate 52 L Respiratory Rate 17 Blood Pressure 120/53 L Pulse Oximetry 93 L Intake & Output 12/21/17 12/22/17 12/22/17 18:59 06:59 18:59 Intake Total 2400 / 2400 3001 / 3001 100 / 100 Output Total 550 / 550 750 / 750 Balance 1850 / 1850 2251 / 2251 100 / 100 Weight 239 lb 3.225 oz Intake: IV 1200 / 1200 100 / 100 100 / 100 D5W/1/2NS + KCL 20 mEq Inj 1, 1000 / 1000 000 ML @ 125 mls/hr IV.CONT . Q8H ALFRED Rx#:[id number] Azactam Inj 2 GM In NS Inj 100 200 / 200 100 / 100 100 / 100 ML @ 200 mls/hr IV.SIG Q8H ALFRED Rx#:[id number] Oral 1200 / 1200 600 / 600 Other 2301 / 2301 Output: Estimated Blood Loss 750 / 750 Urine Amount (Catheter) 550 / 550 Indwelling Urethral Catheter 550 / 550 Other: # Voids 1 4 Date of Last Bowel Movement 12/15/17 12/15/17 Result Diagrams: 12/21/17 03:34 12/21/17 03:34 Medications: Active Medications Generic Name Dose Route Start Last Admin Trade Name Freq PRN Reason Stop Dose Admin Al Hydroxide/Mg Hydroxide 30 ml 12/19/17 11:15 12/19/17 16:35 Milk Of Magnesia Liq PO 30 ml Q12H PRN Administration Mild Constipation Alprazolam 0.5 mg 12/19/17 14:22 12/20/17 12:10 Xanax PO 0.5 mg Q6H PRN Administration ANXIETY Amlodipine Besylate 10 mg 12/16/17 15:00 12/22/17 08:22 Norvasc PO 10 mg DAILY ALFRED Administration Azithromycin 500 mg 12/20/17 08:00 12/22/17 08:22 Zithromax PO 500 mg Q24H ALFRED Administration Sodium Chloride 1,000 mls @ 100 mls/hr 12/16/17 15:00 12/21/17 16:43 Ns Inj IV.CONT Not Given .Q10H ALFRED Lactated Ringer's 1,000 mls @ 30 mls/hr 12/20/17 05:30 12/22/17 08:05 Lr 1000 Ml Inj IV.SIG 12/23/17 05:16 Not Given .Q24H ALFRED Aztreonam 2 gm/ Sodium 100 mls @ 200 mls/hr 12/20/17 07:00 12/22/17 14:54 Chloride IV.SIG 200 mls/hr Q8H ALFRED Administration Ketorolac Tromethamine 15 mg 12/21/17 00:00 12/22/17 11:56 Toradol Inj IV.PUSH 12/23/17 18:01 15 mg Q6HR ALFRED Administration Lactulose 30 ml 12/19/17 11:15 12/19/17 14:26 Lactulose Liq PO 30 ml DAILY PRN Administration SEVERE CONSITIPATION Oxycodone/Acetaminophen 2 tab 12/21/17 20:03 12/22/17 14:52 Percocet 5/325 Mg PO 2 tab Q4H PRN Administration PAIN SCALE 7 - 10 Oxycodone/Acetaminophen 1 tab 12/21/17 21:15 12/21/17 21:52 Percocet 5/325 Mg PO 1 tab Q4H PRN Administration PAIN 1 TO 6 Senna/Docusate Sodium 1 tab 12/16/17 21:00 12/22/17 08:22 Juju-Colace PO 1 tab BID ALFRED Administration Sodium Chloride 2 ml 12/20/17 21:00 12/22/17 08:07 Ns Flush IV.FLUSH 2 ml BID ALFRED Administration Objective Remarks: GENERAL: Obese older female resting in bed in no obvious distress SKIN: Warm and dry. HEAD: Normocephalic. EYES: No scleral icterus. No injection or drainage. NECK: Supple, trachea midline. No JVD or lymphadenopathy. CARDIOVASCULAR: Regular rate and rhythm without murmurs. RESPIRATORY: Breath sounds equal bilaterally. No accessory muscle use. GASTROINTESTINAL: Midline incision with michele present. Well approximated. EXTREMITIES: SCDs to bilateral lower extremities. MUSCULOSKELETAL: Adequate muscle tone. NEUROLOGICAL: No obvious focal deficit. Awake, alert, and oriented x3. Assessment/Plan (1) Anemia Code(s): D64.9 - Anemia, unspecified Status: Acute - Plan 67-year-old female found to have a pelvic mass; hematology consulted for anemia 1. Anemia remains stable. No sign of hemolysis. She is not having any bleeding from recent surgical site. Discussed with patient that the plan will be to follow her CBC after discharge as she recovers from surgery. Anticipate that her counts will slowly recover as she heals. 2. The patient can follow-up with her PCP after discharge. 3. Hematology will continue to follow peripherally. - Attending Statement The exam, history, and the medical decision-making described in the above note were completed with the assistance of the mid-level provider. I reviewed and agree with the findings presented. I attest that I had a [id number] encounter with the patient on the same day, and personally performed and documented my assessment and findings in the medical record. Resting comfortably in bed with daughter at bedside. Anemia stable. Will need follow up on hospital discharge. Hematology service will continue to follow peripherally. (1) Anemia Qualifiers: Anemia type: unspecified type Qualified Code(s): D64.9 - Anemia, unspecified
--- NOTE | 2017-12-22 15:30 | P.PNIM ---
Subjective Interval history: Patient states passing gas but no bowel movements. States that she is tolerating clear liquids. No nausea or vomiting. Still a lot of abdominal pain particularly with movement. Physical Exam Vital signs: Vital Signs 12/21/17 16:00 12/21/17 18:00 12/21/17 19:20 Temperature 98.1 F Pulse Rate 68 64 Respiratory Rate 25 H Blood Pressure 108/67 Pulse Oximetry 96 99 12/21/17 20:00 12/21/17 23:13 12/22/17 00:00 Temperature 98 F 98.3 F Pulse Rate 63 60 Respiratory Rate 19 20 20 Blood Pressure 114/79 104/57 L Pulse Oximetry 95 93 L 12/22/17 04:00 12/22/17 06:00 12/22/17 07:49 Temperature 98 F Pulse Rate 48 L 52 L Respiratory Rate 18 Blood Pressure 109/56 L Pulse Oximetry 92 L 92 L 12/22/17 08:00 Temperature 97.6 F Pulse Rate 52 L Respiratory Rate 17 Blood Pressure 120/53 L Pulse Oximetry 93 L Intake & Output 12/21/17 12/22/17 12/22/17 18:59 06:59 18:59 Intake Total 2400 / 2400 3001 / 3001 100 / 100 Output Total 550 / 550 750 / 750 Balance 1850 / 1850 2251 / 2251 100 / 100 Weight 108.5 kg Intake: IV 1200 / 1200 100 / 100 100 / 100 D5W/1/2NS + KCL 20 mEq Inj 1, 1000 / 1000 000 ML @ 125 mls/hr IV.CONT . Q8H ALFRED Rx#:[id number] Azactam Inj 2 GM In NS Inj 100 200 / 200 100 / 100 100 / 100 ML @ 200 mls/hr IV.SIG Q8H ALFRED Rx#:[id number] Oral 1200 / 1200 600 / 600 Other 2301 / 2301 Output: Estimated Blood Loss 750 / 750 Urine Amount (Catheter) 550 / 550 Indwelling Urethral Catheter 550 / 550 Other: # Voids 1 4 Date of Last Bowel Movement 12/15/17 12/15/17 Narrative: GENERAL: WN, WD pleasant female laying in bed in NAD. SKIN: Warm and dry. No jaundice. HEART: RRR with 1/6 GREY. LUNGS: Anterior breath sounds CTAB. ABDOMEN: +BS, dressing over ex-lap incision in place. Incision clean dry intact michele in place. EXTREMITIES: No LE edema. NEURO: Awake and alert. Nonfocal. PSYCH: Appropriate mood and affect. - Urinary Catheter Management Indwelling Urethral Catheter Cath placed during this visit: yes, but has since been removed by the nurse Reason for continuing: Continue criteria not met Removal date: 12/21/17 Removal time: 16:00 Results - Labs CBC & Chem 7: 12/21/17 03:34 12/21/17 03:34 Assessment and Plan - Assessment (1) Transaminitis Code(s): R74.0 - Nonspecific elevation of levels of transaminase and lactic acid dehydrogenase [LDH] Status: Acute (2) Adnexal mass Code(s): N94.9 - Unspecified condition associated with female genital organs and menstrual cycle Status: Acute (3) Pneumonia Code(s): J18.9 - Pneumonia, unspecified organism Status: Acute - Plan 67 year old female with history of HTN and HLD admitted on 12/16 for severe abdominal pain with CT showing 16.7 x 13.4 x 16.9 cm cystic mass arising from the left adnexa. 1. R adnexal mass - CT showing 16.7 x 13.4 x 16.9 cm cystic mass arising from the left adnexa concerning for malignancy. There is also a 2.9 x 3.5 cm mass in the right adrenal gland, may be benign however it is somewhat more concerning in light of the mass within the pelvis - CA 125 WNL - INSURANCE SOLICITOR consulted - POD2 s/p ex-lap with resection of R ovarian mass, supracervical hysterectomy with B/L SPO, and lysis of adhesions with Dr. Magana - Pathology pending -Continue postoperative care, pain control - Ambulate - ADAT, currently clear liquids -Encourage incentive spirometer 2. Transaminitis - resolving - Unclear etiology, ?shock liver but patient never became hypotensive or septic - AST 17 > 342 > 212 > 104 > 47 > 46, levels are trending down - ALT 22 > 216 > 376 > 256 > 176 > 128, levels are trending down - Alk phosphatase t bili were also mildly up but now decreasing - Hepatitis profile negative - GTT elevated suggestive of liver origin - CT A/P on admission with normal appearance of liver - Liver Doppler U/S with no portal vein thrombosis and normal appearance of liver. GB is surgically absent - Acetaminophen level WNL - Avoid hepatotoxic agents 3. HCAP - CXR 12/19 showing mild basilar air space disease - Since patient developed the fever with CXR findings of possible PNA in the hospital, will treat for HCAP - Allergic to PCN so will treat with Aztreonam and Azithromycin - Supplemental O2 to maintain sats >92% - DuoNeb PRN - Incentive spirometer - Tylenol PRN fever - Encourage OOB 4. HTN, chronic essential - Well-controlled - Continue amlodipine - Clonidine PRN 5 HLD - D/C statin in light of elevated LFTs 6. Incidental adrenal mass - Visualized on both CT and ultrasound -Dr. Morfin discussed findings with patient - She is going to follow this up as an outpatient 7. Anxiety - Xanax PRN 8. Anemia - Iron studies with mixed picture, likely combination of iron deficiency and anemia of chronic disease - B12 and folate WNL - LDH, haptoglobin, and retic count normal - Peripheral smear with findings of severe normocytic anemia and reactive leukocytes - Transfused 1 unit in the OR - Hemoglobin improved with results of 8.7 yesterday. - Continue to monitor - Hemodynamically stable - Transfuse if Hb<7 or symptomatic DVT prophylaxis: SCDs, chemical anticoagulation when appropriate per surgery Discharge Planning: Possible discharge in next 24-48 hours based on clearance with INSURANCE SOLICITOR oncology.
[2017-12-23] MEDS: Ketorolac Inj 30 MG/ML (IVP) Vial IV.PUSH SCH ×3 (05:58→17:03)
[2017-12-23] MEDS: Aztreonam Inj 2 GM in Sodium Chloride 0.9% Inj 100 ML IV.SIG SCH ×2 (06:57→16:00)
--- NOTE | 2017-12-23 08:07 | P.PN ---
Subjective Interval history: c/o nausea with emesis, some pain, anxiety no sob, cp not yet oob Physical Exam Vital signs: Vital Signs 12/22/17 10:00 12/22/17 12:00 12/22/17 14:00 Temperature 98.1 F Pulse Rate 56 L 60 66 Respiratory Rate 15 Blood Pressure 119/59 L Pulse Oximetry 94 L 12/22/17 16:00 12/22/17 18:00 12/22/17 20:00 Temperature 98.4 F 98 F Pulse Rate 74 67 58 L Respiratory Rate 17 20 Blood Pressure 113/58 L 130/61 Pulse Oximetry 93 L 93 L 12/22/17 22:00 12/23/17 00:00 12/23/17 02:00 Temperature Pulse Rate 58 L 55 L 52 L Respiratory Rate 18 Blood Pressure 123/59 L Pulse Oximetry 96 12/23/17 04:00 12/23/17 06:00 Temperature 98 F Pulse Rate 57 L 62 Respiratory Rate 13 Blood Pressure 119/59 L Pulse Oximetry 97 Intake & Output 12/22/17 12/23/17 12/23/17 18:59 06:59 18:59 Intake Total 3461 / 3461 543 / 543 Output Total 750 / 750 Balance 3461 / 3461 -207 / -207 Weight 112.6 kg Intake: IV 200 / 200 100 / 100 Azactam Inj 2 GM In NS Inj 100 200 / 200 100 / 100 ML @ 200 mls/hr IV.SIG Q8H ALFRED Rx#:[id number] Oral 960 / 960 220 / 220 Other 2301 / 2301 223 / 223 Output: Estimated Blood Loss 750 / 750 Other: # Voids 4 3 Date of Last Bowel Movement 12/15/17 12/15/17 # Bowel Movements 0 0 - Constitutional mild distress Comments: nausea, anxiety - Routine Respiratory Exam Present: CTA bilaterally - Routine Cardiovascular Exam Present: RRR - Routine Abdominal Exam Present: soft Comments: mild distention, non-acute, slow bowel sounds incision clean, dry - Routine Neurological Exam Present: alert, oriented X3 - Urinary Catheter Management Indwelling Urethral Catheter Cath placed during this visit: yes, but has since been removed by the nurse Reason for continuing: Continue criteria not met Removal date: 12/21/17 Removal time: 16:00 Results - Labs CBC & Chem 7: 12/21/17 03:34 12/21/17 03:34 Assessment and Plan - Assessment (1) Anemia Code(s): D64.9 - Anemia, unspecified Status: Acute - Plan POD#3, stable, s/s ileus findings, preliminary path reviewed, final path pending oob with assistance, spirometry limited mobility, may benefit from hospital and home PT npo until stomach settles q&a, she & daughter understand (1) Anemia Qualifiers: Anemia type: unspecified type Qualified Code(s): D64.9 - Anemia, unspecified
[2017-12-23] MEDS: Azithromycin 250 MG Tablet PO SCH (08:10)
[2017-12-23] MEDS: Senna/Docusate Sodium 8.6/50 MG Tablet PO SCH ×2 (08:10→21:02)
[2017-12-23] MEDS: amLODIPine 10 MG Tablet PO SCH (08:10)
--- NOTE | 2017-12-23 10:04 | P.PN ---
Subjective Interval history: Follow-up adnexal mass, pneumonia and anemia. Discussed with nursing and daughter. Complains of nausea but no vomiting. Passing gas no BM. Denies fever, chills, cough and shortness of breath. She has been voiding. Out of bed to chair. Physical Exam Vital signs: Vital Signs 12/22/17 12:00 12/22/17 14:00 12/22/17 16:00 Temperature 98.1 F 98.4 F Pulse Rate 60 66 74 Respiratory Rate 15 17 Blood Pressure 119/59 L 113/58 L Pulse Oximetry 94 L 93 L 12/22/17 18:00 12/22/17 20:00 12/22/17 22:00 Temperature 98 F Pulse Rate 67 58 L 58 L Respiratory Rate 20 Blood Pressure 130/61 Pulse Oximetry 93 L 12/23/17 00:00 12/23/17 02:00 12/23/17 04:00 Temperature 98 F Pulse Rate 55 L 52 L 57 L Respiratory Rate 18 13 Blood Pressure 123/59 L 119/59 L Pulse Oximetry 96 97 12/23/17 06:00 Temperature Pulse Rate 62 Respiratory Rate Blood Pressure Pulse Oximetry Intake & Output 12/22/17 12/23/17 12/23/17 18:59 06:59 18:59 Intake Total 3461 / 3461 543 / 543 Output Total 750 / 750 Balance 3461 / 3461 -207 / -207 Weight 112.6 kg Intake: IV 200 / 200 100 / 100 Azactam Inj 2 GM In NS Inj 100 200 / 200 100 / 100 ML @ 200 mls/hr IV.SIG Q8H ALFRED Rx#:[id number] Oral 960 / 960 220 / 220 Other 2301 / 2301 223 / 223 Output: Estimated Blood Loss 750 / 750 Other: # Voids 4 3 Date of Last Bowel Movement 12/15/17 12/15/17 # Bowel Movements 0 0 Narrative: GENERAL: WN, WD pleasant female SKIN: Warm and dry. No jaundice. HEART: RRR with 1/6 GREY. LUNGS: Anterior breath sounds CTAB. ABDOMEN: +BS, dressing over ex-lap incision in place. Incision clean dry intact michele in place. EXTREMITIES: No LE edema. NEURO: Awake and alert. Nonfocal. PSYCH: Appropriate mood and affect. - Urinary Catheter Management Indwelling Urethral Catheter Cath placed during this visit: yes, but has since been removed by the nurse Reason for continuing: Continue criteria not met Removal date: 12/21/17 Removal time: 16:00 Results - Labs CBC & Chem 7: 12/21/17 03:34 12/21/17 03:34 Laboratory Results - last 24 hr 12/20/17 12:59 MTS Gel Crossmatch See Detail - Imaging ITS Impressions Abdomen/Pelvis CT 12/16/17 09:34 CONCLUSION: 1. 16.7 x 13.4 x 16.9 cm cystic mass arising from the left adnexa concerning for malignancy. 2. 2.9 x 3.5 cm mass in the right adrenal gland this is fairly low density and may be benign however it is somewhat more concerning in light of the mass within the pelvis. MRI with chemical shift imaging for further assessment would be of benefit. Pelvis Ultrasound 12/17/17 13:31 CONCLUSION: 1. Large complex cystic mass in the pelvis as seen on recent CT examination. No free fluid identified. 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 2. Uterus and ovaries are not well characterized. Liver Ultrasound 12/18/17 00:00 CONCLUSION: 1. Normal flow direction in the portal vein. Abdominal aorta is patent. No thrombosis identified. 2. Previous cholecystectomy. 3. Calcified granulomata in the liver and spleen. 4. 3 cm right adrenal mass. 5. Cystic lesion seen on CT in lower abdomen not evaluated on this exam. Chest X-Ray 12/19/17 00:00 CONCLUSION: Mild basilar airspace disease with small pleural effusions. Differential diagnosis includes bronchopneumonia in patient with history of fever. - Procedures ex-lap with resection of R ovarian mass, supracervical hysterectomy with B/L SPO , and lysis of adhesions with Dr. Magana Assessment and Plan - Assessment (1) Transaminitis Code(s): R74.0 - Nonspecific elevation of levels of transaminase and lactic acid dehydrogenase [LDH] Status: Acute (2) Adnexal mass Code(s): N94.9 - Unspecified condition associated with female genital organs and menstrual cycle Status: Acute (3) Pneumonia Code(s): J18.9 - Pneumonia, unspecified organism Status: Acute - Plan 67 year old female with history of HTN and HLD admitted on 12/16 for severe abdominal pain with CT showing 16.7 x 13.4 x 16.9 cm cystic mass arising from the left adnexa. 1. R adnexal mass - CT showing 16.7 x 13.4 x 16.9 cm cystic mass arising from the left adnexa concerning for malignancy. There is also a 2.9 x 3.5 cm mass in the right adrenal gland, may be benign however it is somewhat more concerning in light of the mass within the pelvis - CA 125 WNL - INFORMATION ASSISTANT consulted - s/p ex-lap with resection of R ovarian mass, supracervical hysterectomy with B /L SPO, and lysis of adhesions with Dr. Magana - Pathology pending - Continue postoperative care, pain control - Ambulate - ADAT, currently clear liquids secondary to ileus. Advance as tolerated. Increase activity as tolerated - Encourage incentive spirometer 2. Transaminitis - resolving - Unclear etiology, ?shock liver but patient never became hypotensive or septic - AST 17 > 342 > 212 > 104 > 47 > 46, levels are trending down - ALT 22 > 216 > 376 > 256 > 176 > 128, levels are trending down - Alk phosphatase t bili were also mildly up but now decreasing - Hepatitis profile negative - GTT elevated suggestive of liver origin - CT A/P on admission with normal appearance of liver - Liver Doppler U/S with no portal vein thrombosis and normal appearance of liver. GB is surgically absent - Acetaminophen level WNL - Avoid hepatotoxic agents 3. HCAP - CXR 12/19 showing mild basilar air space disease - Since patient developed the fever with CXR findings of possible PNA in the hospital, will treat for HCAP - Allergic to PCN so will treat with Aztreonam and Azithromycin - Supplemental O2 to maintain sats >92% - DuoNeb PRN - Incentive spirometer - Tylenol PRN fever - Encourage OOB 4. HTN, chronic essential - Well-controlled - Continue amlodipine - Clonidine PRN 5 HLD - D/C statin in light of elevated LFTs 6. Incidental adrenal mass - Visualized on both CT and ultrasound - Dr. Whalen discussed findings with patient - She is going to follow this up as an outpatient 7. Anxiety - Xanax PRN 8. Anemia - Iron studies with mixed picture, likely combination of iron deficiency and anemia of chronic disease - B12 and folate WNL - LDH, haptoglobin, and retic count normal - Peripheral smear with findings of severe normocytic anemia and reactive leukocytes - Transfused 1 unit in the OR - Hemoglobin improved with results of 8.7 - Continue to monitor - Hemodynamically stable - Transfuse if Hb<7 or symptomatic DVT prophylaxis: SCDs, chemical anticoagulation when appropriate per surgery Discharge Planning: Stable for transfer to floor Possible discharge in next 24-48 hours based on clearance with INFORMATION ASSISTANT oncology.
[2017-12-24] MEDS: Aztreonam Inj 2 GM in Sodium Chloride 0.9% Inj 100 ML IV.SIG SCH ×3 (00:20→06:37)
[2017-12-24] MEDS: Sod Chloride 0.9% Inj 1,000 ML IV.CONT SCH ×3 (03:20→12:05)
[2017-12-24 06:08] LABS: Baso % (Auto) 0.5 % (0.0-2.0); Eos # (Auto) 0.1 th/mm3 (0.0-0.4); Eos % (Auto) 1.7 % (0.0-4.0); Hematocrit 27.4 % (35.0-46.0); Hemoglobin 9.2 gm/dL (11.6-15.3); Lymph # (Auto) 1.4 th/mm3 (1.0-4.8); Mean Corpuscular HGB Conc 33.6 % (32.0-36.0); Mean Corpuscular Hemoglobin 29.9 pg (27.0-34.0); Mean Corpuscular Volume 88.9 fL (80.0-100.0); Mean Platelet Volume 8.3 fL (7.0-11.0); Mono # (Auto) 0.6 th/mm3 (0.0-0.9); Mono % (Auto) 7.1 % (0.0-8.0); Neut # (Auto) 5.9 th/mm3 (1.8-7.7); Neut % (Auto) 72.7 % (16.0-70.0); Platelet Count 321 th/mm3 (150-450); Red Blood Count 3.08 mil/mm3 (4.00-5.30); Red Cell Distribution Width 14.9 % (11.6-17.2); White Blood Count 8.1 th/mm3 (4.0-11.0)
[2017-12-24 06:25] LABS: Anion Gap 5 meq/L (5-15); Blood Urea Nitrogen 16 mg/dL (7-18); Calcium 8.1 mg/dL (8.5-10.1); Chloride 107 meq/L (98-107); Glomerular Filtration Rate Greater Than 89 mL/min (>89); Glucose,Random 84 mg/dL (74-106); Magnesium 1.9 mg/dL (1.5-2.5); Phosphorus 3.9 mg/dL (2.5-4.9); Potassium 3.6 meq/L (3.5-5.1); Sodium 142 meq/L (136-145)
--- NOTE | 2017-12-24 08:03 | P.PN ---
Subjective Interval history: some improvement in nausea, +/-, no bm no cp, sob, still feels quite weak/tired Physical Exam Vital signs: Vital Signs 12/23/17 08:00 12/23/17 10:00 12/23/17 12:00 Temperature 97.9 F 97.9 F Pulse Rate 67 67 67 Respiratory Rate 16 13 Blood Pressure 125/58 L 110/58 L Pulse Oximetry 96 95 12/23/17 14:00 12/23/17 16:00 12/23/17 18:00 Temperature 98.2 F Pulse Rate 80 78 62 Respiratory Rate 21 Blood Pressure 130/61 Pulse Oximetry 92 L 12/23/17 19:00 12/23/17 20:00 12/23/17 22:00 Temperature 98 F Pulse Rate 73 67 Respiratory Rate 15 Blood Pressure 128/60 Pulse Oximetry 92 L 92 L 12/24/17 00:00 Temperature 97.9 F Pulse Rate 77 Respiratory Rate 16 Blood Pressure 116/57 L Pulse Oximetry 91 L Intake & Output 12/23/17 12/24/17 12/24/17 18:59 06:59 18:59 Intake Total 780 / 780 780 / 780 Balance 780 / 780 780 / 780 Weight 113 kg Intake: IV 100 / 100 300 / 300 Azactam Inj 2 GM In NS Inj 100 100 / 100 300 / 300 ML @ 200 mls/hr IV.SIG Q8H ALFRED Rx#:[id number] Oral 680 / 680 480 / 480 Other: # Voids 3 1 Date of Last Bowel Movement 12/15/17 12/15/17 - Constitutional no acute distress - Routine HEENT Exam Eye: Present: PERRL ENT: Present: mucous membranes moist - Routine Respiratory Exam Present: CTA bilaterally - Routine Cardiovascular Exam Present: RRR - Routine Abdominal Exam Present: soft (minimal distention, hypoactive bs, incision clean, dry) - Routine Neurological Exam Present: alert, oriented X3 - Routine Psychiatric Exam Present: normal affect - Urinary Catheter Management Indwelling Urethral Catheter Cath placed during this visit: yes, but has since been removed by the nurse Reason for continuing: Continue criteria not met Removal date: 12/21/17 Removal time: 16:00 Results - Labs CBC & Chem 7: 12/24/17 04:43 12/24/17 04:43 Laboratory Results - last 24 hr 12/20/17 12/24/17 12/24/17 12:59 04:43 04:43 WBC 8.1 RBC 3.08 L Hgb 9.2 L Hct 27.4 L MCV 88.9 MCH 29.9 MCHC 33.6 RDW 14.9 Plt Count 321 D MPV 8.3 Neut % (Auto) 72.7 H Lymph % (Auto) 18.0 [place] % (Auto) 7.1 Eos % (Auto) 1.7 Baso % (Auto) 0.5 Neut # (Auto) 5.9 Lymph # (Auto) 1.4 [place] # (Auto) 0.6 Eos # (Auto) 0.1 Baso # (Auto) 0.0 WBC Differential . Differential Comment Auto diff final Sodium 142 Potassium 3.6 Chloride 107 Carbon Dioxide 30.0 Anion Gap 5 BUN 16 Creatinine 0.62 Estimated GFR Greater than 89 Random Glucose 84 Calcium 8.1 L Phosphorus 3.9 Magnesium 1.9 MTS Gel Crossmatch See Detail - Procedures ex-lap with resection of R ovarian mass, supracervical hysterectomy with B/L SPO , and lysis of adhesions with Dr. Magana Assessment and Plan - Assessment (1) Anemia Code(s): D64.9 - Anemia, unspecified Status: Acute - Plan POD#4, stable, s/s ileus seemingly improving stable overnight, labs reassuring oob with assistance, spirometry [facility] and home PT clear liquids as tolerated q&a, she understands (1) Anemia Qualifiers: Anemia type: unspecified type Qualified Code(s): D64.9 - Anemia, unspecified
[2017-12-24] MEDS: Senna/Docusate Sodium 8.6/50 MG Tablet PO SCH (08:06)
[2017-12-24] MEDS: amLODIPine 10 MG Tablet PO SCH (08:06)
[2017-12-24] MEDS ORDERED: Azithromycin 250 MG Tablet PO SCH (09:00)
[2017-12-24] MEDS ORDERED: Pantoprazole Inj 40 MG Vial IV.PUSH ONE (09:30)
--- NOTE | 2017-12-24 12:33 | P.DCO ---
- Physical Therapy Order: Evaluate and treat, Improve ambulation, Strength and gait training - Home Health Nursing Order: Medical education, Medication education-adverse effect, Wound care and dressing changes - Certification I have seen patient Blanquita Webber on 12/24/17. My clinical findings support the need for the requested home health care services because: Deconditioned with increased weakness I certify that my clinical findings support that this patient is homebound because: Need for psychosocial assistance
--- NOTE | 2017-12-24 12:58 | P.DS ---
Date of admission: 12/16/17 12:34 Primary care physician: UNKNOWN Brief History from admission: The patient is a 67-year-old female with past medical history of hypertension and hyperlipidemia who is presenting to the hospital with severe abdominal pain. The patient states that at 4 AM she woke up to go to the bathroom when she started to experience severe sharp pains in her right lower quadrant. She says the pain continued to get worse and worse. It was radiating to her right lower back and also down the right side of her groin. She said she had accompanying nausea. She denied any dizziness or fever. She called her daughter at about 5 AM. The patient's is on hospice and the hospice nurse was there and called for an ambulance. The patient still rates her pain at 8 out of 10 in severity. She says it has been 20 years since her last OB/ [employer] checkup and she said everything was normal at that time. She said her periods stopped at the age of 51. She has not had any bleeding recently. She says that she has been experiencing low right-sided back pain for the past week. She has been taking Advil for that. She endorses hard stools and has been taking stool softeners. She does admit to noticing protrusions in her abdomen over the past 6 months. DS: Diagnosis - Discharge Diagnosis (1) Pneumonia Status: Acute (2) Transaminitis Status: Acute (3) Adnexal mass Status: Acute DS: Medications - Discharge Medications Prescriptions: oxycodone-acetaminophen 1 tab PO Q6H PRN #12 tab PRN Reason: Acute Pain sennosides-docusate sodium [Senna Plus] 1 tab PO BID #30 tab DS: Summary Hospital Course: 67 year old female with history of HTN and HLD admitted on 12/16 for severe abdominal pain with CT showing 16.7 x 13.4 x 16.9 cm cystic mass arising from the left adnexa. 1. R adnexal mass - CT showing 16.7 x 13.4 x 16.9 cm cystic mass arising from the left adnexa concerning for malignancy. There is also a 2.9 x 3.5 cm mass in the right adrenal gland, may be benign however it is somewhat more concerning in light of the mass within the pelvis - CA 125 WNL - [employer] consulted - s/p ex-lap with resection of R ovarian mass, supracervical hysterectomy with B /L SPO, and lysis of adhesions with Dr. Magana - Pathology pending - Continue postoperative care, pain control - Ambulate - ADAT, currently clear liquids secondary to ileus. Advance as tolerated. Increase activity as tolerated. She is clinically stable and wants to go home. She has been cleared for discharge by [employer] - Encourage incentive spirometer 2. Transaminitis - resolving - Unclear etiology, ?shock liver but patient never became hypotensive or septic - AST 17 > 342 > 212 > 104 > 47 > 46, levels are trending down - ALT 22 > 216 > 376 > 256 > 176 > 128, levels are trending down - Alk phosphatase t bili were also mildly up but now decreasing - Hepatitis profile negative - GTT elevated suggestive of liver origin - CT A/P on admission with normal appearance of liver - Liver Doppler U/S with no portal vein thrombosis and normal appearance of liver. GB is surgically absent - Acetaminophen level WNL - Avoid hepatotoxic agents 3. HCAP - CXR 12/19 showing mild basilar air space disease - Since patient developed the fever with CXR findings of possible PNA in the hospital, will treat for HCAP - Allergic to PCN so will treat with Aztreonam and Azithromycin switch to p.o. Levaquin for 2 more days. Repeat chest x-ray in 6 weeks - Supplemental O2 to maintain sats >92% - DuoNeb PRN - Incentive spirometer - Tylenol PRN fever - Encourage OOB 4. HTN, chronic essential - Well-controlled - Continue amlodipine - Clonidine PRN 5 HLD - D/C statin in light of elevated LFTs 6. Incidental adrenal mass - Visualized on both CT and ultrasound - Dr. Whalen discussed findings with patient - She is going to follow this up as an outpatient 7. Anxiety - Xanax PRN 8. Anemia - Iron studies with mixed picture, likely combination of iron deficiency and anemia of chronic disease - B12 and folate WNL - LDH, haptoglobin, and retic count normal - Peripheral smear with findings of severe normocytic anemia and reactive leukocytes - Transfused 1 unit in the OR - Hemoglobin improved with results of 8.7 - Continue to monitor - Hemodynamically stable - Transfuse if Hb<7 or symptomatic DVT prophylaxis: SCDs, chemical anticoagulation when appropriate per surgery - Time Spent with Patient Total time spent providing and/or coordinating discharge services: Greater than 30 minutes - Quality: VTE Deep Vein Thrombosis/Pulmonary Embolism Present on Admission: No Exam Vital signs: Vital Signs 12/23/17 14:00 12/23/17 16:00 12/23/17 18:00 Temperature 98.2 F Pulse Rate 80 78 62 Respiratory Rate 21 Blood Pressure 130/61 Pulse Oximetry 92 L 12/23/17 19:00 12/23/17 20:00 12/23/17 22:00 Temperature 98 F Pulse Rate 73 67 Respiratory Rate 15 Blood Pressure 128/60 Pulse Oximetry 92 L 92 L 12/24/17 00:00 12/24/17 08:00 Temperature 97.9 F 98.0 F Pulse Rate 77 63 Respiratory Rate 16 18 Blood Pressure 116/57 L 133/76 Pulse Oximetry 91 L 95 Intake & Output 12/23/17 12/24/17 12/24/17 18:59 06:59 18:59 Intake Total 780 / 780 780 / 780 Balance 780 / 780 780 / 780 Weight 113 kg Intake: IV 100 / 100 300 / 300 Azactam Inj 2 GM In NS Inj 100 100 / 100 300 / 300 ML @ 200 mls/hr IV.SIG Q8H ALFRED Rx#:[id number] Oral 680 / 680 480 / 480 Other: # Voids 3 1 Date of Last Bowel Movement 12/15/17 12/15/17 Narrative: GENERAL: WN, WD pleasant female SKIN: Warm and dry. No jaundice. HEART: RRR with 1/6 GRE[place]. LUNGS: Anterior breath sounds CTAB. ABDOMEN: +BS, dressing over ex-lap incision in place. Incision clean dry intact michele in place. EXTREMITIES: No LE edema. NEURO: Awake and alert. Nonfocal. Results Procedures completed during hospitalization: ex-lap with resection of R ovarian mass, supracervical hysterectomy with B/L SPO , and lysis of adhesions with Dr. Magana Pending studies at discharge: Pending at discharge 12/20/17 07:21 Surgical [PTH] Routine Labs on day of discharge: Labs from last 24 hours 12/24/17 12/24/17 04:43 04:43 WBC 8.1 RBC 3.08 L Hgb 9.2 L Hct 27.4 L MCV 88.9 MCH 29.9 MCHC 33.6 RDW 14.9 Plt Count 321 D MPV 8.3 Neut % (Auto) 72.7 H Lymph % (Auto) 18.0 [place] % (Auto) 7.1 Eos % (Auto) 1.7 Baso % (Auto) 0.5 Neut # (Auto) 5.9 Lymph # (Auto) 1.4 [place] # (Auto) 0.6 Eos # (Auto) 0.1 Baso # (Auto) 0.0 WBC Differential . Differential Comment Auto diff final Sodium 142 Potassium 3.6 Chloride 107 Carbon Dioxide 30.0 Anion Gap 5 BUN 16 Creatinine 0.62 Estimated GFR Greater than 89 Random Glucose 84 Calcium 8.1 L Phosphorus 3.9 Magnesium 1.9 - Impressions ITS Impressions Abdomen/Pelvis CT 12/16/17 09:34 CONCLUSION: 1. 16.7 x 13.4 x 16.9 cm cystic mass arising from the left adnexa concerning for malignancy. 2. 2.9 x 3.5 cm mass in the right adrenal gland this is fairly low density and may be benign however it is somewhat more concerning in light of the mass within the pelvis. MRI with chemical shift imaging for further assessment would be of benefit. Pelvis Ultrasound 12/17/17 13:31 CONCLUSION: 1. Large complex cystic mass in the pelvis as seen on recent CT examination. No free fluid identified. 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 2. Uterus and ovaries are not well characterized. Liver Ultrasound 12/18/17 00:00 CONCLUSION: 1. Normal flow direction in the portal vein. Abdominal aorta is patent. No thrombosis identified. 2. Previous cholecystectomy. 3. Calcified granulomata in the liver and spleen. 4. 3 cm right adrenal mass. 5. Cystic lesion seen on CT in lower abdomen not evaluated on this exam. Chest X-Ray 12/19/17 00:00 CONCLUSION: Mild basilar airspace disease with small pleural effusions. Differential diagnosis includes bronchopneumonia in patient with history of fever. Discharge Plan - Discharge Disposition Patient Disposition: W/Home Health Service - Discharge Condition Condition: Stable - Discharge Order Discharge Orders: Discharge Order (Routine); Ordered 12/24/17 Ordered By: Tavo Tang - Physicians Team Primary Care Provider: UNKNOWN, Attending Provider: Tavo Tang Other Providers: Mattie Qureshi MD ; Melita Atkins MD ; [facility] ; Shereen Rene ; Gerda Magana MD ; Dong Avila MD
== END 2017-12-24 16:28 | disposition home health service (06) ==
LOC: NEPC 06:53 → OBSVTOIN 12:34 → NEDA 12:48 → INTOOBSV 12:48 → NEDA 13:50 → N07 13:54 → N03 12-20 21:37 → N07 12-24 00:02
PROVIDERS: ADMIT Internal Medicine; ATTEND Internal Medicine